=== PATIENT | female | born 1970 | race Caucasian/White ===

== ENCOUNTER 2017-07-24 07:04 | Emergency (ER) | payer SELFPAY ==
[~2017-07-24] VITALS: Ht 162.6 cm; Wt 86.2 kg
[~2017-07-24 07:04] MED LIST: AZIT250T12 PO; BUDE10.2 IH; BUSP10TA95 PO; D-ME118S33 PO; DICL75TA2 PO; LURA60TA2 PO; OXYB5TAB9 PO; OXYC-197 PO; PRAZ1CAP PO; PRD20T PO; SERT100T PO; TOPI100C6 PO
[2017-07-24 07:34] LABS: BASOPHILS # (AUTO) 0.1 10^3/uL (0.0-0.1); BASOPHILS % (AUTO) 1 % (0-10); EOSINOPHILS # (AUTO) 0.5 10^3/uL (0.0-0.3); EOSINOPHILS % (AUTO) 6 % (0-10); HEMATOCRIT 43 % (35-52); HEMOGLOBIN 15.3 G/DL (11.5-16.0); LYMPHOCYTES % (AUTO) 36 % (12-44); MEAN CORPUSCULAR HEMOGLOBIN 30 PG (25-34); MEAN CORPUSCULAR HGB CONC 36 G/DL (32-36); MEAN CORPUSCULAR VOLUME 83 FL (80-99); MEAN PLATELET VOLUME 9.9 FL (7.4-10.4); MONOCYTES # (AUTO) 0.5 X 10^3 (0.0-1.0); MONOCYTES % (AUTO) 6 % (0-12); NEUTROPHILS # (AUTO) 4.4 X 10^3 (1.8-7.8); NEUTROPHILS % (AUTO) 52 % (42-75); PLATELET COUNT 271 10^3/uL (130-400); RED BLOOD COUNT 5.12 10^6/uL (4.35-5.85); RED CELL DISTRIBUTION WIDTH 13.2 % (10.0-14.5); WHITE BLOOD COUNT 8.5 10^3/uL (4.3-11.0)
[2017-07-24] MEDS: diphenhydrAMINE 50 MG/ML INJ (BENADRYL) IVP ONE (07:43)
[2017-07-24] MEDS: methylPREDNISolone 125 MG (Solu-MEDROL) VIAL IVP ONE (07:43)
[2017-07-24] MEDS: fentaNYL INJECTION 100 MCG/2 ML AMP IVP ONE (07:43)
[2017-07-24 07:48] LABS: ALANINE AMINOTRANSFERASE 13 U/L (0-55); ALBUMIN 4.3 GM/DL (3.2-4.5); ALKALINE PHOSPHATASE 64 U/L (40-136); BILIRUBIN,TOTAL 0.8 MG/DL (0.1-1.0); BUN/CREATININE RATIO 19; CALCIUM 9.7 MG/DL (8.5-10.1); CARBON DIOXIDE 18 MMOL/L (21-32); CHLORIDE 111 MMOL/L (98-107); GFR ESTIMATED > 60; GLUCOSE 116 MG/DL (70-105); POTASSIUM 3.9 MMOL/L (3.6-5.0); SODIUM 140 MMOL/L (135-145); TOTAL PROTEIN 7.4 GM/DL (6.4-8.2)
[2017-07-24] MEDS ORDERED: RT-ALBUINH IH (07:55)
[2017-07-24] MEDS: NS 250 ML (IVPB) BAG IV ONE (08:26)
[2017-07-24] MEDS: IOHEXOL 350 MG/ML 100 ML (OMNIPAQUE 350) VIAL IV ONE (08:26)
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
--- NOTE | 2017-07-24 08:33 | Diagnostic Imaging Report ---
INDICATION: Fall with right shoulder pain. AP, oblique, and transscapular views of the right shoulder are obtained. FINDINGS: No fracture or acute bony abnormality is seen. There is degenerative change of AC joint. There is minimal degenerative change of the glenohumeral joint. IMPRESSION: Degenerative findings as above with no acute fracture or dislocation. Dictated by: Dictated on workstation # [id number]
--- NOTE | 2017-07-24 08:54 | Diagnostic Imaging Report ---
PROCEDURE: CT chest, abdomen, and pelvis with contrast. TECHNIQUE: Multiple contiguous axial images were obtained through the chest, abdomen, and pelvis after the administration of intravenous contrast. INDICATION: Fall. CT chest: There appear to be surgical clips in the anterior mediastinum. No mediastinal hematoma or great vessel injury is detected. No pericardial or pleural fluid is detected. No parenchymal contusion or pneumothorax is detected. IMPRESSION: Unremarkable CT of the chest CT abdomen and pelvis: Postsurgical changes to the stomach are identified. Liver demonstrates mild generalized low density suggestive of hepatic steatosis. No focal laceration is seen. The gallbladder is unremarkable. No splenic laceration is identified. The pancreas is unremarkable. No adrenal hematoma is seen. No renal injury is identified. The aorta is unremarkable. There is no ascites or hemoperitoneum. The bladder and uterus are unremarkable. IMPRESSION: No evidence of abdominal or pelvic visceral injury. Dictated by: Dictated on workstation # [id number]
--- NOTE | 2017-07-24 09:26 | Diagnostic Imaging Report ---
INDICATION: Fall. Back pain. COMPARISON: None. TECHNIQUE: Routine noncontrast CT of the thoracic and lumbar spine was performed. Multiplanar reformats were also performed and reviewed. FINDINGS: CT thoracic spine: Static alignment is maintained. There is no significant anterolisthesis or retrolisthesis. There is no evidence of jumped facets. Vertebral body heights are preserved as well. There is no evidence acute fracture. No bony fragments are seen within the spinal canal. There are multilevel degenerative changes consisting of intervertebral disc height loss with anterior and posterior disc osteophyte complex formations as well as multilevel facet arthropathy. There is, however, no significant bony spinal canal stenosis. Surrounding soft tissue structures are unremarkable. Included portions of the lung gilmore are clear. CT LUMBAR SPINE: Static alignment of the lumbar spine is maintained as well. There is no significant anterolisthesis or retrolisthesis. There is no evidence of jumped facets. Vertebral body heights are preserved. There is no evidence acute fracture. No bony fragments are seen within the spinal canal. There are mild multilevel degenerative changes within the lumbar spine as well. There is no evidence of significant bony spinal canal stenosis. Surrounding soft tissue structures show small right adrenal adenoma that measures approximately 1.1 cm in diameter. Please note, CT of the chest, abdomen and pelvis was also performed same day and dictated separately. IMPRESSION: 1. No CT evidence of acute fracture or dislocation of the thoracic or lumbar spine. 2. Mild multilevel degenerative changes. Dictated by: Dictated on workstation # [id number]
[2017-07-24] MEDS: KETOROLAC 30 MG/ML VIAL IVP ONE (09:40)
[2017-07-24 10:08] VITALS: BP 127/93
== END 2017-07-24 10:11 | disposition home or self-care (01) ==
LOC: EDUNIT# 07:04 → ER 07:06
DX: S49.91XA Unspecified injury of right shoulder and upper arm, initial encounter (principal); M54.6 Pain in thoracic spine; M54.5 Low back pain; R06.00 Dyspnea, unspecified; J44.9 Chronic obstructive pulmonary disease, unspecified; F41.9 Anxiety disorder, unspecified; F31.9 Bipolar disorder, unspecified; F43.10 Post-traumatic stress disorder, unspecified; Z87.19 Personal history of other diseases of the digestive system; Z87.42 Personal history of other diseases of the female genital tract; Z96.22 Myringotomy tube(s) status; W10.9XXA Fall (on) (from) unspecified stairs and steps, initial encounter
CPT/HCPCS: 36415; 71260; 72128; 72131; 73030; 74177; 80053; 85025; 96374; 96375

== ENCOUNTER 2018-02-15 11:12 | Emergency (ER) | payer SELFPAY ==
[~2018-02-15] VITALS: Ht 165.1 cm; Wt 98.9 kg
[~2018-02-15 11:12] MED LIST changes: -OXYC-197 PO; +OXYC1TAB87 PO; +RT-ALBUINH IH
[2018-02-15] MEDS ORDERED: HYOSCYAMINE 0.125 MG (LEVSIN) TAB ONE (11:36)
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
[2018-02-15 11:41] LABS: HEMOGLOBIN 15.7 G/DL (11.5-16.0); WHITE BLOOD COUNT 7.4 10^3/uL (4.3-11.0)
[2018-02-15 11:42] LABS: BASOPHILS # (AUTO) 0.1 10^3/uL (0.0-0.1); BASOPHILS % (AUTO) 1 % (0-10); EOSINOPHILS # (AUTO) 0.4 10^3/uL (0.0-0.3); EOSINOPHILS % (AUTO) 5 % (0-10); HEMATOCRIT 45 % (35-52); LYMPHOCYTES # (AUTO) 2.7 X 10^3 (1.0-4.0); LYMPHOCYTES % (AUTO) 36 % (12-44); MEAN CORPUSCULAR HEMOGLOBIN 30 PG (25-34); MEAN CORPUSCULAR HGB CONC 35 G/DL (32-36); MEAN CORPUSCULAR VOLUME 86 FL (80-99); MEAN PLATELET VOLUME 9.9 FL (7.4-10.4); MONOCYTES # (AUTO) 0.6 X 10^3 (0.0-1.0); MONOCYTES % (AUTO) 8 % (0-12); NEUTROPHILS # (AUTO) 3.7 X 10^3 (1.8-7.8); NEUTROPHILS % (AUTO) 50 % (42-75); PLATELET COUNT 240 10^3/uL (130-400); RED CELL DISTRIBUTION WIDTH 12.3 % (10.0-14.5)
[2018-02-15] MEDS ORDERED: HYOSCYAMINE 0.125 MG (LEVSIN) TAB PO ONE (11:45)
[2018-02-15] MEDS ORDERED: NS IV 1000 ML 1,000 ML IV SCH (11:45)
[2018-02-15 12:02] LABS: ALANINE AMINOTRANSFERASE 15 U/L (0-55); ALBUMIN 4.2 GM/DL (3.2-4.5); ALKALINE PHOSPHATASE 70 U/L (40-136); AMYLASE 52 U/L (25-125); BILIRUBIN,TOTAL 1.2 MG/DL (0.1-1.0); BUN/CREATININE RATIO 14; CALCIUM 9.7 MG/DL (8.5-10.1); CARBON DIOXIDE 23 MMOL/L (21-32); CHLORIDE 107 MMOL/L (98-107); GFR ESTIMATED > 60; GLUCOSE 83 MG/DL (70-105); LIPASE 29 U/L (8-78); POTASSIUM 3.9 MMOL/L (3.6-5.0); SODIUM 140 MMOL/L (135-145); TOTAL PROTEIN 7.3 GM/DL (6.4-8.2)
[2018-02-15 12:53] LABS: BILIRUBIN,URINE NEGATIVE (NEGATIVE); GLUCOSE, URINE (UA) NEGATIVE (NEGATIVE); KETONES,URINE NEGATIVE (NEGATIVE); LEUKOCYTE ESTERASE ,URINE NEGATIVE (NEGATIVE); NITRITE,URINE NEGATIVE (NEGATIVE); PH,URINE 7 (5-9); PROTEIN,URINE NEGATIVE (NEGATIVE); UROBILINOGEN,URINE NORMAL (NORMAL)
[2018-02-15 12:57] LABS: AMORPHOUS SEDIMENT,UR RARE AMOR PHOSPHATE /LPF; BACTERIA,URINE TRACE /HPF; CLARITY,URINE CLEAR; COLOR,URINE YELLOW; WBC,URINE 0-2 /HPF
[2018-02-15] MEDS ORDERED: ONDN4T PO (13:13)
[2018-02-15 13:45] VITALS: BP 129/88
== END 2018-02-15 13:45 | disposition home or self-care (01) ==
LOC: ER 11:12 → EDUNIT# 11:12 → ER 13:45
DX: R11.2 Nausea with vomiting, unspecified (principal); R19.7 Diarrhea, unspecified; J44.9 Chronic obstructive pulmonary disease, unspecified; G47.30 Sleep apnea, unspecified; F41.9 Anxiety disorder, unspecified; F31.9 Bipolar disorder, unspecified; F43.10 Post-traumatic stress disorder, unspecified; Z98.84 Bariatric surgery status; Z87.19 Personal history of other diseases of the digestive system; Z87.448 Personal history of other diseases of urinary system; Z91.040 Latex allergy status; Z91.041 Radiographic dye allergy status; Z79.51 Long term (current) use of inhaled steroids; Z98.890 Other specified postprocedural states
CPT/HCPCS: 36415; 80053; 81000; 82150; 83690; 84703; 85025

== ENCOUNTER 2018-05-17 05:35 | Outpatient (CLI) | payer OTHER ==
[~2018-05-17] VITALS: Ht 165.1 cm; Wt 102.5 kg
[~2018-05-17 05:35] MED LIST changes: +ONDN4T PO
[2018-05-17] MEDS ORDERED: MONT10TA21 PO (10:23)
[2018-05-17] MEDS ORDERED: AZIT250T PO (18:00)
[2018-05-17] MEDS ORDERED: METH4TAB PO (18:00)
[2018-05-17] MEDS ORDERED: D-ME473S38 PO (18:00)
[2018-05-17] MEDS ORDERED: ALB0.5V INH (18:00)
== END 2018-05-17 10:27 | disposition home or self-care (01) ==
LOC: PREOP 05:35
PROVIDERS: ATTEND Surgery
DX: Z01.818 Encounter for other preprocedural examination (principal)

== ENCOUNTER 2018-05-17 16:15 | Emergency (ER) | payer OTHER ==
[~2018-05-17] VITALS: Ht 162.6 cm; Wt 102.5 kg
[~2018-05-17 16:15] MED LIST changes: +MONT10TA21 PO
--- OUTSIDE RECORDS SUMMARY | 2018-05-17 16:20 | XMS REPORT | CCD ---
Author Author JOSE MANUEL VALENCIA Organization Unknown Address [address] [facility] [address] [place], [place] [id number] Care Team Providers Care Safety Glass Installer Name Role Phone PATTI CLAYLOWELL Attphys JS GOMEZ, MAURO Busch S., TIOT Bates NASST A., ДМИТРИЙ NASST W., KAYLENE NASST F., MARANDA NASST C., MICKEY Martino NASST E., DAVIE Galvin NASST M., AKUA NASST A., MELISSA NASST C., DANNY NASST Vital Signs Vital Sign Value Unit Date/Time Recent/Initial? Weight Measured 336.5 lbs 01/29/2014 10:03 Initial VS Height 65 in 01/29/2014 10:03 Initial VS BMI (Body Mass Index) 56 kg/m^2 01/29/2014 10:03 Initial VS BSA (Body Surface Area) 2.65 m^2 01/29/2014 10:03 Initial VS BP Systolic 125 mmHg 01/29/2014 10:03 Initial VS BP Diastolic 81 mmHg 01/29/2014 10:03 Initial VS Respiratory Rate 22 bpm 01/29/2014 10:03 Initial VS Heart Rate 103 bpm 01/29/2014 10:03 Initial VS O2 % BldC Oximetry 100 % 01/29/2014 10:03 Initial VS Body Temperature 99 degrees 01/29/2014 10:03 Initial VS BP Systolic 135 mmHg 01/31/2014 15:09 Most Recent VS BP Diastolic 80 mmHg 01/31/2014 15:09 Most Recent VS Respiratory Rate 20 bpm 01/31/2014 15:09 Most Recent VS Heart Rate 77 bpm 01/31/2014 15:09 Most Recent VS O2 % BldC Oximetry 100 % 01/31/2014 15:09 Most Recent VS Body Temperature 96.8 degrees 01/31/2014 15:09 Most Recent VS Allergies Allergy Code Allergy Type Reaction Status LATEX 0 Allergy to substance Active IODINE 5933 Drug allergy Active NATURAL RUBBER {Clinical monitoring unavailable} 0 Drug allergy Active Procedures Procedure Code Procedure Type Date ABDOMINAL WALL INCISION 540 ICD-9 CM, Volume 3 01/29/2014 CBC W/ AUTO DIFF (RFLX MAN DIFF IF IND) 7429006 SNOMED CT 01/29/2014 COMPREHENSIVE METABOLIC PANEL 927452139 SNOMED CT 2013 CULTURE BLOOD 60619562 SNOMED CT 01/29/2014 ^CBC W/AUTO DIFF 5084887 SNOMED CT 01/29/2014 CULTURE MISC 251384463 SNOMED CT 01/29/2014 GRAM STAIN 47381233 SNOMED CT 01/29/2014 CBC W/ AUTO DIFF (RFLX MAN DIFF IF IND) 2202607 SNOMED CT 01/30/2014 COMPREHENSIVE METABOLIC PANEL 234923774 SNOMED CT [address] 01/30/[address] 01/30/2014 HEMOGLOBIN A1C 47315052 SNOMED CT 01/30/2014 ^CBC W/AUTO DIFF 5311723 SNOMED CT 01/30/2014 [address]LECTION 16[address]66 SNOMED [address] 01/29/2014 ^SENSITIVITY 135939928 SNOMED CT 01/29/2014 ^CULT ANAEROBIC 168873284 SNOMED CT 01/29/2014 US ABD LTD (SINGLE ORGAN) 432523381 SNOMED CT 01/29/2014 History of Immunizations Unknown or Not Available. Problems Problem Code Start Date Resolved Date Status Abscess of abdominal wall 87790651 01/29/2014 Active Results COMPREHENSIVE METABOLIC PANEL - Collect Date/Time: 01/30/2014 06:10 Test Name Code Test Result Test Units Test Ref Range GLUCOSE 2345-7 104 MG/DL L=70 H=100 SODIUM 2951-2 139 MEQ/L L=135 H=148 POTASSIUM 2823-3 3.8 MEQ/L L=3.5 H=5.3 CHLORIDE 2075-0 104 MEQ/L L=96 H=110 CO2 2028-9 21 MEQ/L L=22 H=29 BUN 3094-0 7 MG/DL L=8 H=22 CREATININE 2160-0 0.7 MG/DL L=0.6 H=1.6 SGOT/AST 1920-8 63 IU/L L=10 H=40 SGPT/ALT 1742-6 40 IU/L L=8 H=54 ALK PHOS 6768-6 69 IU/L L=35 H=115 TOTAL PROTEIN 2885-2 8.0 G/DL L=5.5 H=8.5 ALBUMIN 1751-7 3.6 G/DL L=3.1 H=5.4 TOTAL BILI 1975-2 0.2 MG/DL L=0.0 H=1.5 CALCIUM 07731-3 9.7 MG/DL L=8.2 H=10.6 AGE 43 yrs GFR NonAA 92 GFR AA 112 eGFR 60 mL/min/1.7 eGFR AA* 60 mL/min/1.7 COMPREHENSIVE METABOLIC PANEL - Collect Date/Time: 01/29/2014 07:40 Test Name Code Test Result Test Units Test Ref Range GLUCOSE 2345-7 123 MG/DL L=70 H=100 SODIUM 2951-2 138 MEQ/L L=135 H=148 POTASSIUM 2823-3 3.6 MEQ/L L=3.5 H=5.3 CHLORIDE 2075-0 104 MEQ/L L=96 H=110 CO2 2028-9 18 MEQ/L L=22 H=29 BUN 3094-0 5 MG/DL L=8 H=22 CREATININE 2160-0 0.8 MG/DL L=0.6 H=1.6 SGOT/AST 1920-8 62 IU/L L=10 H=40 SGPT/ALT 1742-6 37 IU/L L=8 H=54 ALK PHOS 6768-6 68 IU/L L=35 H=115 TOTAL PROTEIN 2885-2 8.0 G/DL L=5.5 H=8.5 ALBUMIN 1751-7 3.5 G/DL L=3.1 H=5.4 TOTAL BILI 1975-2 0.7 MG/DL L=0.0 H=1.5 CALCIUM 13338-8 10.1 MG/DL L=8.2 H=10.6 AGE 43 yrs GFR NonAA 79 GFR AA 96 eGFR 60 mL/min/1.7 eGFR AA* 60 mL/min/1.7 CBC W/ AUTO DIFF (RFLX MAN DIFF IF IND) - Collect Date/Time: 01/30/2014 06:10 Test Name Code Test Result Test Units Test Ref Range WBC 48190-0 9.2 TH/CMM L=4.5 H=10.8 RBC 789-8 4.52 ML/CMM L=4.20 H=5.40 HGB 718-7 11.2 G/DL L=12.0 H=16.0 HCT 4544-3 36.2 % L=37.0 H=47.0 MCV 80 FL L=81 H=99 MCH 24.8 PG L=27.0 H=33.0 MCHC 30.9 G/DL L=31.0 H=36.0 RDW SD 44 FL L=36 H=50 RDW CV 15.2 % L=0.0 H=14.8 MPV 9.8 FL L=9.3 H=12.5 PLT 777-3 376 TH/CMM L=130 H=440 NRBC# 0.00 TH/CMM L=0.00 H=0.00 NRBC% 0.0 /100WBC L=0.0 H=2.0 %NEUT 51.1 % %LYMP 36.1 % %MONO 6.1 % %EOS 6.3 % %BASO 0.4 % #NEUT 4.72 TH/CMM L=2.10 H=8.20 #LYMP 3.34 TH/CMM L=0.90 H=5.20 #MONO 0.56 TH/CMM L=0.16 H=1.00 #EOS 0.58 TH/CMM L=0.00 H=0.80 #BASO 0.04 TH/CMM L=0.00 H=0.20 MANUAL DIFF NOT IND N/A CBC W/ AUTO DIFF (RFLX MAN DIFF IF IND) - Collect Date/Time: 01/29/2014 07:40 Test Name Code Test Result Test Units Test Ref Range WBC 66594-8 12.4 TH/CMM L=4.5 H=10.8 RBC 789-8 4.38 ML/CMM L=4.20 H=5.40 HGB 718-7 10.9 G/DL L=12.0 H=16.0 HCT 4544-3 34.5 % L=37.0 H=47.0 MCV 79 FL L=81 H=99 MCH 24.9 PG L=27.0 H=33.0 MCHC 31.6 G/DL L=31.0 H=36.0 RDW SD 44 FL L=36 H=50 RDW CV 15.3 % L=0.0 H=14.8 MPV 9.1 FL L=9.3 H=12.5 PLT 777-3 338 TH/CMM L=130 H=440 NRBC# 0.00 TH/CMM L=0.00 H=0.00 NRBC% 0.0 /100WBC L=0.0 H=2.0 %NEUT 71.1 % %LYMP 19.6 % %MONO 5.9 % %EOS 3.1 % %BASO 0.3 % #NEUT 8.84 TH/CMM L=2.10 H=8.20 #LYMP 2.44 TH/CMM L=0.90 H=5.20 #MONO 0.74 TH/CMM L=0.16 H=1.00 #EOS 0.38 TH/CMM L=0.00 H=0.80 #BASO 0.04 TH/CMM L=0.00 H=0.20 MANUAL DIFF NOT IND N/A HEMOGLOBIN A1C - Collect Date/Time: 01/30/2014 06:10 Test Name Code Test Result Test Units Test Ref Range HGB A1C 80919-0 5.8 % L=4.0 H=6.4 Est Avg Glucose 119.8 mg/dL MAGNESIUM - Collect Date/Time: 01/30/2014 06:10 Test Name Code Test Result Test Units Test Ref Range MAGNESIUM 49837-6 2.1 MG/DL L=1.7 H=2.8 PHOSPHORUS - Collect Date/Time: 01/30/2014 06:10 Test Name Code Test Result Test Units Test Ref Range PHOSPHORUS 2777-1 3.9 MG/DL L=2.5 H=4.5 Active Medications No Active Medications Medications Administered During Visit Medication Dose Units Frequency Route Date/ Time of Last Dose METOCLOPRAMIDE [REGLAN] INJ: 10MG/2ML 10 MG X1 IVP 01/29/2014 10:58 FAMOTIDINE(PEPCID)IV BAMG X1 IV 01/29/2014 10:59 NS 1000 ML IV [PREDEFINED] (7983) CONT IV IV 01/29/2014 16:34 NORCO [HYDROCODONE/APAP] 10/325MG TAB 2 EA PRN PO 01/31/2014 13:49 MORPHINE INJ: 2MG/ML 1 ML SYRINGE 2 MG PRN IVP 01/29/2014 14:12 SERTRALINE [ZOLOFT] TABLET: 50 MG 50 MG DAILY PO 01/31/2014 08:13 ERTAPENEM 1 GM IV Q 24 HRS [PREDEFINED] Q24H IV 01/31/2014 13:49 EPOETIN YANELI 40,000 UNIT VIAL 89015 UNITS DAILY SUB Q 01/31/2014 08:13 Encounters Encounter Diagnosis Diagnosis Code Start Date CELLULITIS OF TRUNK 6822 01/29/2014 Social History Smoking Status Code Start Date End Date Current every day smoker 651293221 Patient Decision Aids Unknown or Not Available. Discharge Instructions You were admitted to [facility] on 01/29/2014 with a principal diagnosis of CELLULITIS OF TRUNK. You had the following procedures done: ABDOMINAL WALL INCISION You were discharged from [facility] on 01/31/2014. Should you have any questions prior to discharge, please contact a member of your healthcare team. If you have left the hospital and have any questions, please contact your primary care physician. HOME DIET: Regular. CONDITION AT DISMISSAL Stable. HOME MEDICATION INSTRUCTIONS: Take only the medications listed above.. Verbalizes understanding of instructions. HOME MEDS RETURNED TO PATIENT: N/A. continue zoloft and skelaxin as currently taking at home. Pain medication: [place]- 1-2 tablets every 4 hrs as needed. (prescription) Antibiotic: Augmentin - 1 tablet twice a day (prescription) ACTIVITY INSTRUCTIONS(list limitations): May Shower. SPECIAL INSTRUCTIONS: Pack wound with saline soaked kerlix , . cover with 4x4's, abd and foam tape daily SCRIPTS WRITTEN BY DOCTOR GIVEN TO PATIENT? Yes, for what? augmentin, norco, Education performed on new medications. Verbalizes understanding of instructions. FOLLOW UP CARE - SEE YOUR PHYSICIAN: You have an appointment on ThursdayFebruary 03 at 9 am. PRIMARY CARE PHYSICIAN OR PRACTITIONER: Lowell Vargas DO, . CONTACT PHYSICIAN IF YOU EXPERIENCE ANY: Nausea/Vomiting , pain, numbness in your hands/feet, Shortness of Breath. fever. PERSONAL ITEMS RETURNED: Yes. Bring these instructions to next visit? Yes. INSTRUCTIONS GIVEN AND DISCHARGE TO: Patient. VOICES UNDERSTANDING OF INSTRUCTIONS: Yes. INSTRUCTIONS GIVEN BY (TYPE IN NAME AND DATE) Gennaro Valerio RN 01/31/14 SMOKING CESSATION: A pamphlet on smoking was given to you, at admission.. RELEVANT CONTACT INFORMATION: [facility] will see you at your home tomorrow. CHIEF COMPLAINT: RIGHT UPPER QUADRANT ABCESS Chief Complaint and Reason For Visit Chief Complaint Date of Onset ABDOMINAL WALL ABCESS Function Status Description Code Date Type Status No Impairments 66186151 09/09/2013 Functional Active Plan of Care Care Plan Entries Problem: Closed fracture carpal bone [SNOMED: 0786555] Goal: Pain management [SNOMED: 836729262] Instructions: pain management assisted with use of prn pain medications. Possible open reduction internal fixation for left distal radial fracture. Referral/Transition of Care Unknown or Not Available.
--- OUTSIDE RECORDS SUMMARY | 2018-05-17 16:20 | XMS REPORT | CCD ---
Author Author JOSE MANUEL VALENCIA Organization Unknown Address [address] [address] [place], [place] [id number] Care Team Providers Care Dump Truck Driver Name Role Phone PATTI CLAYLOWELL Attphys JS GOMEZ, MAURO Busch S., TITO Bates NASST A., ДМИТРИЙ NASST W., KAYLENE [...] AUTO DIFF (RFLX MAN DIFF IF IND) 4895975 SNOMED CT 01/29/2014 COMPREHENSIVE METABOLIC PANEL 209689878 SNOMED CT 2013 CULTURE BLOOD 65493856 SNOMED CT 01/29/2014 ^CBC W/AUTO DIFF 1203415 SNOMED CT 01/29/2014 CULTURE MISC 149169493 SNOMED CT 01/29/2014 GRAM STAIN 77148514 SNOMED CT 01/29/2014 CBC W/ AUTO DIFF (RFLX MAN DIFF IF IND) 6420791 SNOMED CT 01/30/2014 COMPREHENSIVE METABOLIC PANEL 496674051 SNOMED CT [address] 01/30/[address] 01/30/2014 HEMOGLOBIN A1C 33313566 SNOMED CT 01/30/2014 ^CBC W/AUTO DIFF 9547681 SNOMED CT 01/30/2014 BLOOD COLLECTION 83866106 SNOMED CT 01/29/2014 ^SENSITIVITY 621662101 SNOMED CT 01/29/2014 ^CULT ANAEROBIC 486207562 SNOMED CT 01/29/2014 US ABD LTD (SINGLE ORGAN) 834587720 SNOMED CT 01/29/2014 History of Immunizations Unknown or Not Available. Problems Problem Code Start Date Resolved Date Status Abscess of abdominal wall 43704691 01/29/2014 Active Results COMPREHENSIVE METABOLIC PANEL - [...] BILI 1975-2 0.2 MG/DL L=0.0 H=1.5 CALCIUM 08899-5 9.7 MG/DL L=8.2 H=10.6 AGE 43 yrs [...] BILI 1975-2 0.7 MG/DL L=0.0 H=1.5 CALCIUM 57677-8 10.1 MG/DL L=8.2 H=10.6 AGE 43 yrs GFR NonAA 79 GFR AA 96 eGFR 60 mL/min/1.7 eGFR AA* 60 mL/min/1.7 CBC W/ AUTO DIFF (RFLX MAN DIFF IF IND) - Collect Date/Time: 01/30/2014 06:10 Test Name Code Test Result Test Units Test Ref Range WBC 17753-7 9.2 TH/CMM L=4.5 H=10.8 RBC 789-8 4.52 [...] Result Test Units Test Ref Range WBC 26976-6 12.4 TH/CMM L=4.5 H=10.8 RBC 789-8 4.38 [...] Test Units Test Ref Range HGB A1C 49076-4 5.8 % L=4.0 H=6.4 Est Avg Glucose 119.8 mg/dL MAGNESIUM - Collect Date/Time: 01/30/2014 06:10 Test Name Code Test Result Test Units Test Ref Range MAGNESIUM 49570-4 2.1 MG/DL L=1.7 H=2.8 PHOSPHORUS - Collect [...] 01/31/2014 13:49 EPOETIN YANELI 40,000 UNIT VIAL 32922 UNITS DAILY SUB Q 01/31/2014 08:13 Encounters Encounter Diagnosis Diagnosis Code Start Date CELLULITIS OF TRUNK 6822 01/29/2014 Social History Smoking Status Code Start Date End Date Current every day smoker [id number] Patient Decision Aids Unknown or Not Available. Discharge Instructions You were admitted to [facility] on 01/29/2014 with a principal diagnosis of CELLULITIS OF TRUNK. You had the following procedures done: ABDOMINAL WALL INCISION You were discharged from [facility] on 01/31/2014. Should you have any questions [...] as currently taking at home. Pain medication: [place]- 1-2 tablets every 4 hrs as needed. [...] to you, at admission.. RELEVANT CONTACT INFORMATION: [facility] will see you at your home tomorrow. CHIEF COMPLAINT: RIGHT UPPER QUADRANT ABCESS Chief Complaint and Reason For Visit Chief Complaint Date of Onset ABDOMINAL WALL ABCESS Function Status Description Code Date Type Status No Impairments [id number] 09/09/2013 Functional Active Plan of Care Care Plan Entries Problem: Closed fracture carpal bone [SNOMED: 9061014] Goal: Pain management [SNOMED: 193988940] Instructions: pain management assisted with use of prn pain medications. Possible open reduction internal fixation for left distal radial fracture. Referral/Transition of Care Unknown or Not Available.
--- OUTSIDE RECORDS SUMMARY | 2018-05-17 16:21 | XMS REPORT ---
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 Role Phone PCP Unavailable Allergies and Adverse Reactions Name Reaction Notes iodine Latex natural rubber Plan of Treatment Planned Activity Comments Planned Date Planned Time Plan/Goal COMPLETE CBC W/AUTO DIFF WBC 01/20/2014 12:00 AM COMPREHEN METABOLIC PANEL 01/20/2014 12:00 AM MAMMOGRAM SCREENING 06/09/2014 12:00 AM COMPLETE CBC W/AUTO DIFF WBC 06/02/2014 12:00 AM COMPREHEN METABOLIC PANEL 06/02/2014 12:00 AM LIPID PANEL 06/02/2014 12:00 AM GLYCOSYLATED HEMOGLOBIN TEST 06/02/2014 12:00 AM Medications Active Name Start Date Estimated Completion Date SIG Comments Zoloft oral tablet 100 mg 02/17/2014 take 1 tablet by oral route daily Symbicort inhalation HFA aerosol inhaler 160-4.5 mcg/actuation inhale 2 puffs by inhalation route 2 times per day in the morning and evening Latuda oral tablet 60 mg take 1 tablet (60 mg) by oral route once daily with food (at least 350 calories) oxybutynin chloride oral tablet 5 mg 04/04/2014 take 1 tablet (5 mg) by oral route 2 times per day Minipress oral capsule 1 mg 04/04/2014 take 1 capsule (1 mg) by oral route 1 times per day meloxicam oral tablet 15 mg 04/04/2014 take 1 tablet (15 mg) by oral route once daily buspirone oral tablet 10 mg take 1 tablet (10 mg) by oral route 3 times per day Trokendi XR oral capsule,extended release 24hr 50 mg take 1 capsule (50 mg) by oral route once daily Name Start Date Expiration Date SIG Comments Skelaxin oral tablet 800 mg 10/21/2013 11/20/2013 take 1 tablet (800 mg) by oral route 3 times per day as needed for 30 days Augmentin oral tablet 875-125 mg 01/20/2014 01/30/2014 take 1 tablet by oral route every 12 hours for 10 days Discontinued Name Start Date Discontinued Date SIG Comments ibuprofen oral tablet 800 mg 12/20/2013 take 1 tablet by oral route every 6 hours as needed Percocet oral tablet 5-325 mg 10/21/2013 take 1 tablet by oral route every 4-6 hours as needed hydrocodone-acetaminophen oral tablet 5-325 mg 07/19/2013 1-2 tabs po q4-6 hrs PRN pain hydrocodone-acetaminophen oral tablet 10-325 mg 01/20/2014 take 1or 2 tablet by oral route every 4 hours as needed for pain prednisone oral tablet 50 mg 01/20/2014 take 1 tablet 13hrs before test, take 1 tablet 7hrs before test and 1 talbet 1 hours before test Symbicort inhalation HFA aerosol inhaler 80-4.5 mcg/actuation 01/30/2014 inhale 2 puffs by inhalation route 2 times per day in the morning and evening Augmentin oral tablet 875-125 mg 04/04/2014 take 1 tablet by oral route every 12 hours Skelaxin oral tablet 800 mg 04/04/2014 take 1 tablet (800 mg) by oral route 3 times per day as needed Depue oral tablet 10-325 mg 04/04/2014 take 1 tablet by oral route every 6 hours as needed for pain Problem List Description Status Onset Abdominal Tenderness Active 06/28/2013 Abdominal Wall Contusion Active 06/28/2013 Seroma Active 10/25/2013 Hematoma Active 08/30/2013 Contusion, abdominal wall Active 08/31/2013 Vital Signs Date Time BP-Sys(mm[Hg] BP-Zenobia(mm[Hg]) HR(bpm) RR(rpm) Temp WT HT HC BMI BSA BMI Percentile O2 Sat(%) 06/30/2014 8:05:00 AM 120 mmHg 80 mmHg 63 bpm 20 rpm 97.6 F 341.6 lbs 99 % 06/02/2014 10:34:00 AM 137 mmHg 79 mmHg 93 bpm 98.1 F 337 lbs 65 in 56.0792 kg/m 2.6477 m 06/02/2014 9:36:00 AM 122 mmHg 90 mmHg 67 bpm 20 rpm 97.8 F 337 lbs 65 in 56.08 kg/m2 2.65 m2 98 % 04/04/2014 9:58:00 AM 124 mmHg 84 mmHg 81 bpm 20 rpm 98.1 F 331 lbs 65 in 55.0807 kg/m 2.624 m 97 % 02/17/2014 9:28:00 AM 124 mmHg 78 mmHg 78 bpm 20 rpm 97.2 F 340.4 lbs 65 in 56.64 kg/m2 2.66 m2 99 % 02/10/2014 10:41:00 AM 129 mmHg 65 mmHg 75 bpm 20 rpm 97.6 F 336.312 lbs 65 in 55.9648 kg/m 2.645 m 01/20/2014 10:46:00 AM 120 mmHg 88 mmHg 100 bpm 22 rpm 99.9 F 345.4 lbs 65 in 57.48 kg/m2 2.68 m2 98 % 12/20/2013 1:50:00 PM 128 mmHg 90 mmHg 96 bpm 20 rpm 98.8 F 343.8 lbs 65 in 57.2107 kg/m 2.6743 m 99 % 12/20/2013 1:04:00 PM 148 mmHg 99 mmHg 92 bpm 22 rpm 98 F 345 lbs 65 in 57.41 kg/m2 2.68 m2 11/16/2013 1:50:00 PM 157 mmHg 99 mmHg 84 bpm 22 rpm 97.4 F 349 lbs 65 in 58.076 kg/m 2.6944 m 10/21/2013 1:02:00 PM 138 mmHg 82 mmHg 83 bpm 22 rpm 97 F 360.312 lbs 63 in 63.83 kg/m2 2.70 m2 08/30/2013 10:05:00 AM 123 mmHg 76 mmHg 90 bpm 20 rpm 97.2 F 358.312 lbs 62 in 65.5355 kg/m 2.6664 m 08/23/2013 9:25:00 AM 143 mmHg 82 mmHg 91 bpm 20 rpm 97.4 F 360 lbs 07/19/2013 10:52:00 AM 140 mmHg 95 mmHg 96 bpm 22 rpm 97 F 354 lbs 65 in 58.9081 kg/m 2.7137 m 06/28/2013 11:05:00 AM 145 mmHg 86 mmHg 75 bpm 20 rpm 97.6 F 353 lbs 65 in 58.74 kg/m2 2.71 m2 Social History Name Description Comments Tobacco Alcohol Use - Rare History of Procedures Date Ordered Description Order Status 12/20/2013 12:00 AM COMPLETE CBC W/AUTO DIFF WBC Returned 12/20/2013 12:00 AM COMPREHEN METABOLIC PANEL Returned 12/20/2013 12:00 AM LIPID PANEL Returned 12/20/2013 12:00 AM ASSAY THYROID STIM HORMONE Returned 12/20/2013 12:00 AM VITAMIN B-12 Returned 12/20/2013 12:00 AM URINALYSIS AUTO W/SCOPE Returned 12/20/2013 12:00 AM CHEST X-RAY 2VW FRONTAL&LATL Returned 12/20/2013 12:00 AM BREATHING CAPACITY TEST Returned 01/19/2014 12:00 AM COMPLETE CBC W/AUTO DIFF WBC Returned 01/19/2014 12:00 AM COMPREHEN METABOLIC PANEL Returned 01/10/2014 12:[address] THORAX W/DYE Returned 06/09/2014 12:00 AM US EXAM PELVIC COMPLETE Returned 06/02/2014 12:00 AM SPECIMEN HANDLING OFFICE-LAB Reviewed 06/02/2014 12:00 AM ASSAY THYROID STIM HORMONE Returned 06/02/2014 12:00 AM ASSAY OF GONADOTROPIN (FSH) Returned 06/02/2014 12:00 AM ASSAY OF PROLACTIN Returned 06/02/2014 12:00 AM CYTOPATH C/V THIN LAYER Returned Results Summary Data and Description Results 06/17/2013 6:15 AM WBC 9.8 RBC 4.02 HGB 10.40 g/dLHCT 32.0 %MCV 80.0 fLMCH 25.90 pgMCHC 32.50 g/dLRDW CV 16.0 %MPV 10.20 fLPLT 258 %NEUT 50.0 %%LYMP 36.50 %%MONO 9.80 %%EOS 2.70 %%BASO 1.0 %#NEUT 4.88 #LYMP 3.56 #MONO 0.96 #EOS 0.26 # BASO 0.10 10/21/2013 1:40 PM TSH 6.10 uIU/mL 11/03/2013 8:12 AM TEST UR NEGATIVE 12/20/2013 2:50 PM WBC 10.9 RBC 4.65 HGB 11.40 g/dLHCT 36.30 %MCV 78.0 fLMCH 24.50 pgMCHC 31.40 g/dLRDW CV 15.40 %MPV 9.80 fLPLT 328 %NEUT 57.40 %%LYMP 33.80 %%MONO 5.30 %%EOS 3.0 %%BASO 0.50 %#NEUT 6.27 #LYMP 3.69 #MONO 0.58 #EOS 0.33 #BASO 0.06 COLOR YELLOW APPEARANCE CLEAR SPEC GRAV 1.025 pH 6.0 PROTEIN NEGATIVE GLUCOSE NEGATIVE KETONE NEGATIVE BILIRUBIN NEGATIVE BLOOD SMALL NITRITE NEGATIVE LEUK SCREEN NEGATIVE CASTS/LPF NEGATIVE CRYSTALS NEGATIVE MUCOUS THRDS FEW BACTERIA 1+ EPITH CELLS 1+ SQUAMOUS TRICHOMONAS NEGATIVE YEAST NEGATIVE GLUCOSE 85.0 mg/dLSODIUM 138.0 mmol/LPOTASSIUM 4.10 mmol/LCHLORIDE 104.0 mmol/LCO2 23.0 mmol/LBUN 8.0 mg/dLCREATININE 0.70 mg/dLSGOT/AST 90.0 IU/ LSGPT/ALT 56.0 IU/LALK PHOS 72.0 IU/LTOTAL PROTEIN 8.10 g/dLALBUMIN 4.0 g/ dLTOTAL BILI 0.80 mg/dLCALCIUM 10.20 mg/dLeGFR 60 TRIGLYCERIDES 143.0 mg/ dLCHOLESTEROL 151.0 mg/dLVITAMIN B12 506.0 pg/mLTSH 1.570 uIU/mLTRIGLYCERIDES 143.0 mg/dLCHOLESTEROL 151.0 mg/dLHDL 30.0 mg/dLLDL (CALC) 92.0 mg/dL 01/20/2014 11:45 AM GLUCOSE 95.0 mg/dLSODIUM 135.0 mmol/LPOTASSIUM 4.30 mmol/ LCHLORIDE 102.0 mmol/LCO2 21.0 mmol/LBUN 8.0 mg/dLCREATININE 0.70 mg/dLSGOT/AST 38.0 IU/LSGPT/ALT 39.0 IU/LALK PHOS 93.0 IU/LTOTAL PROTEIN 7.60 g/dLALBUMIN 3.80 g/dLTOTAL BILI 1.10 mg/dLCALCIUM 9.50 mg/dLeGFR 60 WBC 15.3 RBC 4.84 HGB 11.90 g/dLHCT 37.90 %MCV 78.0 fLMCH 24.60 pgMCHC 31.40 g/dLRDW CV 15.70 %MPV 10.30 fLPLT 324 %NEUT 62.20 %%LYMP 26.60 %%MONO 9.60 %%EOS 1.20 %%BASO 0.40 %# NEUT 9.49 #LYMP 4.06 #MONO 1.47 #EOS 0.19 #BASO 0.06 EOS 3.0 % 01/30/2014 6:10 AM WBC 9.2 RBC 4.52 HGB 11.20 g/dLHCT 36.20 %MCV 80.0 fLMCH 24.80 pgMCHC 30.90 g/dLRDW CV 15.20 %MPV 9.80 fLPLT 376 %NEUT 51.10 %%LYMP 36.10 %%MONO 6.10 %%EOS 6.30 %%BASO 0.40 %#NEUT 4.72 #LYMP 3.34 #MONO 0.56 #EOS 0.58 #BASO 0.04 MAGNESIUM 2.10 mg/dLHGB A1C 5.80 %PHOSPHORUS 3.90 mg/dLGLUCOSE 104.0 mg/dLSODIUM 139.0 mmol/LPOTASSIUM 3.80 mmol/LCHLORIDE 104.0 mmol/LCO2 21.0 mmol/LBUN 7.0 mg/dLCREATININE 0.70 mg/dLSGOT/AST 63.0 IU/LSGPT/ALT 40.0 IU/ LALK PHOS 69.0 IU/LTOTAL PROTEIN 8.0 g/dLALBUMIN 3.60 g/dLTOTAL BILI 0.20 mg/ dLCALCIUM 9.70 mg/dLeGFR 60 06/02/2014 11:45 AM FSH 6.20 mIU/mLTSH 3.980 uIU/mL History Of Immunizations Not available. History of Past Illness Name Date of Onset Comments Obesity Abdominal Tenderness 06/28/2013 Abdominal Wall Contusion 06/28/2013 Seroma 10/25/2013 Hematoma 08/30/2013 Contusion, abdominal wall 08/31/2013 Anxiety bipolar PTSD COPD Abdominal Tenderness Jun 28 2013 11:11AM Abdominal Wall Contusion Jun 28 2013 11:11AM Abdominal Wall Contusion Jul 19 2013 11:13AM Seroma Aug 23 2013 10:23AM Hematoma Aug 30 2013 10:14AM Contusion, abdominal wall Aug 23 2013 10:23AM Seroma Oct 25 2013 10:51AM Routine adult health maintenance Dec 20 2013 1:52PM Fatigue Dec 20 2013 1:52PM Obesity Dec 20 2013 1:52PM Depression Dec 20 2013 1:52PM Ischemic heart disease screen Dec 20 2013 1:52PM COPD (chronic obstructive pulmonary disease) Dec 20 2013 1:52PM JOSE ANGEL (obstructive sleep apnea) Dec 20 2013 1:52PM Shortness of breath Dec 20 2013 1:52PM Urinary frequency Dec 20 2013 1:52PM Elevated WBCs Dec 26 2013 10:43AM Elevated liver enzymes Dec 26 2013 10:43AM Abnormal PFT Jan 10 2014 11:53AM Anemia Jan 20 2014 10:49AM Elevated liver enzymes Jan 20 2014 10:49AM Shortness of breath Jan 20 2014 10:49AM Abnormal PFT Jan 20 2014 10:49AM Fever Jan 20 2014 10:49AM Low back pain Feb 17 2014 9:30AM Hip pain Feb 17 2014 9:30AM Depressive Disorder Feb 17 2014 9:30AM Depressive Disorder Apr 04 2014 10:05AM Urinary Incontinence Apr 04 2014 10:05AM Nightmares Apr 04 2014 10:05AM History of suicidal ideation Apr 04 2014 10:05AM Routine gynecological examination Jun 02 2014 10:36AM Dysmenorrhea Jun 02 2014 10:36AM Menorrhagia Jun 02 2014 10:36AM Obesity Jun 02 2014 10:36AM Dysmenorrhea Jun 02 2014 11:25AM Menorrhagia Jun 02 2014 11:25AM Screening Mammogram Jun 02 2014 11:25AM Depressive Disorder Jun 02 2014 9:37AM Urinary Incontinence Jun 02 2014 9:37AM Nightmares Jun 02 2014 9:37AM History of suicidal ideation Jun 02 2014 9:37AM Anemia Jun 02 2014 9:37AM Obesity Jun 02 2014 9:37AM Anxiety Disorder Jun 02 2014 9:37AM Chronic Obstructive Pulmonary Disease Jun 02 2014 9:37AM Bipolar disorder Jun 02 2014 9:37AM PTSD (post-traumatic stress disorder) Jun 02 2014 9:37AM JOSE ANGEL (obstructive sleep apnea) Jun 02 2014 9:37AM Elevated liver enzymes Jun 02 2014 9:37AM Impaired fasting glucose Jun 02 2014 9:37AM Ischemic heart disease screen Jun 02 2014 9:37AM JOSE ANGEL on CPAP Jun 30 2014 8:07AM Payers Insurance Name Company Name Plan Name Plan Number Policy Number Policy Group Number Start Date [facility] [id number] N/A History of Encounters Visit Date Visit Type Provider 06/30/2014 Office visit Gissel Sanchez TIP CUTTER 06/30/2014 Office visit Salena Badillo TIP CUTTER 06/02/2014 Office visit Gissel Sanchez TIP CUTTER 06/02/2014 Office visit Salena Badillo TIP CUTTER 04/04/2014 Office visit Gissel Sanchez TIP CUTTER 02/17/2014 Office visit Gissel Sanchez TIP CUTTER 02/10/2014 Surgery Lowell Vargas DO 01/29/2014 Hospital Lowell Vargas DO 01/29/2014 Hospital Lowell Vargas DO 01/20/2014 Office visit Gissel Sanchez TIP CUTTER 12/20/2013 Office visit Lowell Vargas DO 12/20/2013 Office visit Gissel Sanchez TIP CUTTER 11/16/2013 Surgery Lowell Vargas DO 11/03/2013 Hospital Lowell Vargas DO 11/03/2013 [facility] Natalia Jo MD 10/21/2013 Procedures Lowell Vargas DO 08/30/2013 Office visit Lowell Vargas DO 08/23/2013 Office visit Lowell Vargas DO 07/19/2013 Office visit Lowell Vargas DO 06/28/2013 Office visit Lowell Vargas DO 06/16/2013 [facility] Lowell Vargas DO
--- OUTSIDE RECORDS SUMMARY | 2018-05-17 16:22 | XMS REPORT ---
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 Role Phone PCP Unavailable Allergies and Adverse Reactions Name Reaction Notes iodine Latex natural rubber Plan of Treatment Planned Activity Comments Planned Date Planned Time Plan/Goal COMPLETE CBC W/AUTO DIFF WBC 01/20/2014 12:00 AM COMPREHEN METABOLIC PANEL 01/20/2014 12:00 AM COMPLETE CBC W/AUTO DIFF WBC 12/15/2014 12:00 AM COMPREHEN METABOLIC PANEL 12/15/2014 12:00 AM LIPID PANEL 12/15/2014 12:00 AM GLYCOSYLATED HEMOGLOBIN TEST 12/15/2014 12:00 AM Medications Active Name Start Date Estimated Completion Date SIG Comments Zoloft oral tablet 100 mg 02/17/2014 take 1 tablet by oral route daily Latuda oral tablet 60 mg take 1 tablet (60 mg) by oral route once daily with food (at least 350 calories) oxybutynin chloride oral tablet 5 mg 04/04/2014 take 1 tablet (5 mg) by oral route 2 times per day Minipress oral capsule 1 mg 04/04/2014 take 1 capsule (1 mg) by oral route 1 times per day buspirone oral tablet 10 mg take 1 tablet (10 mg) by oral route 3 times per day Trokendi XR oral capsule,extended release 24hr 50 mg take 1 capsule (50 mg) by oral route once daily Symbicort inhalation HFA aerosol inhaler 160-4.5 mcg/actuation 08/15/2014 inhale 2 puffs by inhalation route 2 times per day in the morning and evening diclofenac sodium oral tablet,delayed release (DR/EC) 75 mg 08/15/2014 take 1 tablet (75 mg) by oral route 2 times per day Name Start Date Expiration Date SIG Comments Skelaxin oral tablet 800 mg 10/21/2013 11/20/2013 take 1 tablet (800 mg) by oral route 3 times per day as needed for 30 days Augmentin oral tablet 324-125 mg 01/20/2014 01/30/2014 take 1 tablet by [...] route 3 times per day as needed [place] oral tablet 10-325 mg 04/04/2014 take 1 tablet by oral route every 6 hours as needed for pain meloxicam oral tablet 15 mg 04/04/2014 08/15/2014 take 1 tablet (15 mg) by oral route once daily Problem List Description Status Onset Abdominal Tenderness Active 06/28/2013 Abdominal Wall Contusion Active 06/28/2013 Seroma Active 10/25/2013 Hematoma Active 08/30/2013 Contusion, abdominal wall Active 08/31/2013 Vital Signs Date Time BP-Sys(mm[Hg] BP-Zenobia(mm[Hg]) HR(bpm) RR(rpm) Temp WT HT HC BMI BSA BMI Percentile O2 Sat(%) 08/15/2014 9:55:00 AM 118 mmHg 82 mmHg 78 bpm 20 rpm 98.3 F 350.6 lbs 65 in 58.34 kg/m2 2.70 m2 100 % 07/28/2014 10:19:00 AM 129 mmHg 73 mmHg 69 bpm 96.6 F 347 lbs 65 in 57.7432 kg/m 2.6867 m 06/30/2014 9:26:00 AM 142 mmHg 79 mmHg 60 bpm 97.6 F 341 lbs 65 in 56.74 kg/m2 2.66 m2 06/30/2014 8:05:00 AM 120 mmHg 80 mmHg 63 bpm 20 rpm 97.6 F 341.6 lbs 99 % 06/02/2014 10:34:00 AM 137 mmHg 79 mmHg 93 bpm 98.1 F 337 lbs 65 in 56.08 kg/m2 2.65 m2 06/02/2014 9:36:00 AM 122 mmHg 90 mmHg 67 bpm 20 rpm 97.8 F 337 lbs 65 in 56.0792 kg/m 2.6477 m 98 % 04/04/2014 9:58:00 AM 124 mmHg 84 mmHg 81 bpm 20 rpm 98.1 F 331 lbs 65 in 55.08 kg/m2 2.62 m2 97 % 02/17/2014 9:28:00 AM 124 mmHg 78 mmHg 78 bpm 20 rpm 97.2 F 340.4 lbs 65 in 56.6449 kg/m 2.661 m 99 % 02/10/2014 10:41:00 AM 129 mmHg 65 mmHg 75 bpm 20 rpm 97.6 F 336.312 lbs 65 in 55.96 kg/m2 2.65 m2 01/20/2014 10:46:00 AM 120 mmHg 88 mmHg 100 bpm 22 rpm 99.9 F 345.4 lbs 65 in 57.477 kg/m 2.6805 m 98 % 12/20/2013 1:50:00 PM 128 mmHg 90 mmHg 96 bpm 20 rpm 98.8 F 343.8 lbs 65 in 57.21 kg/m2 2.67 m2 99 % 12/20/2013 1:04:00 PM 148 mmHg 99 mmHg 92 bpm 22 rpm 98 F 345 lbs 65 in 57.4104 kg/m 2.679 m 11/16/2013 1:50:00 PM 157 mmHg 99 mmHg 84 bpm 22 rpm 97.4 F 349 lbs 65 in 58.08 kg/m2 2.69 m2 10/21/2013 1:02:00 PM 138 mmHg 82 mmHg 83 bpm 22 rpm 97 F 360.312 lbs 63 in 63.8258 kg/m 2.6953 m 08/30/2013 10:05:00 AM 123 mmHg 76 mmHg 90 bpm 20 rpm 97.2 F 358.312 lbs 62 in 65.54 kg/m2 2.67 m2 08/23/2013 9:25:00 AM 143 mmHg 82 mmHg 91 bpm 20 rpm 97.4 F 360 lbs 07/19/2013 10:52:00 AM 140 mmHg 95 mmHg 96 bpm 22 rpm 97 F 354 lbs 65 in 58.91 kg/m2 2.71 m2 06/28/2013 11:05:00 AM 145 mmHg 86 mmHg 75 bpm 20 rpm 97.6 F 353 lbs 65 in 58.7417 kg/m 2.7098 m Social History Name Description Comments Tobacco Alcohol [...] 12:00 AM US EXAM PELVIC COMPLETE Returned 06/09/2014 12:00 AM MAMMOGRAM SCREENING Returned 06/02/2014 12:00 AM SPECIMEN HANDLING OFFICE-LAB Reviewed 06/02/2014 12:00 AM ASSAY THYROID STIM HORMONE Returned 06/02/2014 12:00 AM ASSAY OF GONADOTROPIN (FSH) Returned 06/02/2014 12:00 AM ASSAY OF PROLACTIN Returned 06/02/2014 12:00 AM CYTOPATH C/V THIN LAYER Returned 06/02/2014 12:00 AM COMPLETE CBC W/AUTO DIFF WBC Returned 06/02/2014 12:00 AM COMPREHEN METABOLIC PANEL Returned 06/02/2014 12:00 AM LIPID PANEL Returned 06/02/2014 12:00 AM GLYCOSYLATED HEMOGLOBIN TEST Returned 07/28/2014 11:27 AM URINE TEST Reviewed 07/28/2014 12:00 AM BIOPSY OF UTERUS LINING Returned Results Summary Data and Description Results [...] 11:45 AM FSH 6.20 mIU/mLTSH 3.980 uIU/mL 07/28/2014 9:35 AM WBC 8.8 RBC 5.23 HGB 12.70 g/dLHCT 39.50 %MCV 76.0 fLMCH 24.30 pgMCHC 32.20 g/dLRDW CV 17.50 %MPV 9.70 fLPLT 247 %NEUT 58.40 %%LYMP 30.30 %%MONO 5.40 %%EOS 5.10 %%BASO 0.80 %#NEUT 5.12 #LYMP 2.66 #MONO 0.47 #EOS 0.45 #BASO 0.07 GLUCOSE 107.0 mg/dLSODIUM 140.0 mmol/LPOTASSIUM 4.60 mmol/ LCHLORIDE 108.0 mmol/LCO2 24.0 mmol/LBUN 10.0 mg/dLCREATININE 0.80 mg/dLSGOT/ AST 33.0 IU/LSGPT/ALT 24.0 IU/LALK PHOS 70.0 IU/LTOTAL PROTEIN 7.40 g/dLALBUMIN 4.10 g/dLTOTAL BILI 0.70 mg/dLCALCIUM 9.40 mg/dLeGFR >60 mL/min/1.73 [id number] 131.0 mg/dLCHOLESTEROL 170.0 mg/dLHDL 36.0 mg/dLLDL (CALC) 108.0 mg/dLHGB A1C 5.70 % 07/28/2014 11:27 AM Test, Urine negative History Of Immunizations Not available. History of [...] ANGEL on CPAP Jun 30 2014 8:07AM Menorrhagia Jun 30 2014 9:30AM Special investigations and examinations; examination or test; examination or test, negative result Jul 28 2014 11:27AM Abnormal Uterine Bleeding Jul 28 2014 11:20AM Anemia Aug 15 2014 9:58AM Obesity Aug 15 2014 9:58AM Anxiety Disorder Aug 15 2014 9:58AM Depressive Disorder Aug 15 2014 9:58AM Chronic Obstructive Pulmonary Disease Aug 15 2014 9:58AM Urinary Incontinence Aug 15 2014 9:58AM Nightmares Aug 15 2014 9:58AM History of suicidal ideation Aug 15 2014 9:58AM Bipolar disorder Aug 15 2014 9:58AM PTSD (post-traumatic stress disorder) Aug 15 2014 9:58AM JOSE ANGEL (obstructive sleep apnea) Aug 15 2014 9:58AM Elevated liver enzymes Aug 15 2014 9:58AM Impaired fasting glucose Aug 15 2014 9:58AM Ischemic heart disease screen Aug 15 2014 9:58AM Unsteady gait Aug 15 2014 9:58AM Lumbar pain Aug 15 2014 9:58AM Hip pain Aug 15 2014 9:58AM Payers Insurance Name Company Name Plan Name Plan Number Policy Number Policy Group Number Start Date [facility] [id number] N/A History of Encounters Visit Date Visit Type Provider 08/15/2014 Office visit Gissel Sanchez RAIL TECHNICIAN 07/28/2014 Procedures Que Roy MD 06/30/2014 Office visit Gissel Sanchez RAIL TECHNICIAN 06/30/2014 Office visit Salena Badillo RAIL TECHNICIAN 06/02/2014 Office visit Gissel Sanchez RAIL TECHNICIAN 06/02/2014 Office visit Salena Badillo RAIL TECHNICIAN 04/04/2014 Office visit Gissel Sanchez RAIL TECHNICIAN 02/17/2014 Office visit Gissel Sanchez RAIL TECHNICIAN 02/10/2014 Surgery Lowell Vargas DO 01/29/2014 Hospital Lowell Vargas DO 01/29/2014 Hospital Lowell Vargas DO 01/20/2014 Office visit Gissel Sanchez RAIL TECHNICIAN 12/20/2013 Office visit Lowell Vargas DO 12/20/2013 Office visit Gissel Sanchez RAIL TECHNICIAN 11/16/2013 Surgery Lowell Vargas DO 11/03/2013 Hospital Lowell Vargas DO 11/03/2013 Rebekah Jo MD 10/21/2013 Procedures Lowell Vargas DO 08/30/2013 Office visit Lowell Vargas DO 08/23/2013 Office visit Lowell Vargas DO 07/19/2013 Office visit Lowell Vargas DO 06/28/2013 Office visit Lowell Vargas DO 06/16/2013 [facility] Lowell Vargas DO
--- OUTSIDE RECORDS SUMMARY | 2018-05-17 16:22 | XMS REPORT ---
Author Gissel Mason [facility] Address [address] [place], [place] [id number] Care Team Providers Care Principal Programmer Name Role Phone Gissel Sanchez PCP Unavailable Allergies and Adverse Reactions Name Reaction Notes iodine Latex natural rubber Plan of Treatment Planned Activity Comments Planned Date Planned Time Plan/Goal POLYSOM 6/> YRS 4/> STACI 12/20/2013 12:00 AM COMPLETE CBC W/AUTO DIFF WBC 01/20/2014 12:00 AM COMPREHEN METABOLIC PANEL 01/20/2014 12:00 AM COMPLETE CBC W/AUTO DIFF WBC 12/15/2014 12:00 AM COMPREHEN METABOLIC PANEL 12/15/2014 12:00 AM LIPID PANEL 12/15/2014 12:00 AM GLYCOSYLATED HEMOGLOBIN TEST 12/15/2014 12:00 AM Medications Active Name Start Date Estimated Completion Date SIG Comments Zoloft 100 mg oral tablet 02/17/2014 take 1 tablet by oral route daily Latuda 60 mg oral tablet take 1 tablet (60 mg) by oral route once daily with food (at least 350 calories) Minipress 1 mg oral capsule 04/04/2014 take 1 capsule (1 mg) by oral route 1 times per day buspirone 10 mg oral tablet take 1 tablet (10 mg) by oral route 3 times per day Trokendi XR 50 mg oral capsule,extended release 24hr take 1 capsule (50 mg) by oral route once daily Symbicort 160-4.5 mcg/actuation inhalation HFA aerosol inhaler 08/15/2014 inhale 2 puffs by inhalation route 2 times per day in the morning and evening diclofenac sodium 75 mg oral tablet,delayed release (DR/EC) 08/15/2014 take 1 tablet (75 mg) by oral route 2 times per day oxybutynin chloride 5 mg oral tablet 09/22/2014 take 1 tablet (5 mg) by oral route 2 times per day Lysteda 650 mg oral tablet 10/30/2014 11/19/2014 take 2 tablets (1,300 mg) by oral route 3 times per day during menses for 5 days Name Start Date Expiration Date SIG Comments Skelaxin 800 mg oral tablet 10/21/2013 11/20/2013 take 1 tablet (800 mg) by oral route 3 times per day as needed for 30 days Augmentin 875-125 mg oral tablet 01/20/2014 01/30/2014 take 1 tablet by oral route every 12 hours for 10 days Discontinued Name Start Date Discontinued Date SIG Comments ibuprofen 800 mg oral tablet 12/20/2013 take 1 tablet by oral route every 6 hours as needed Percocet 5-325 mg oral tablet 10/21/2013 take 1 tablet by oral route every 4-6 hours as needed hydrocodone-acetaminophen 5-325 mg oral tablet 07/19/2013 1-2 tabs po q4-6 hrs PRN pain hydrocodone-acetaminophen 10-325 mg oral tablet 01/20/2014 take 1or 2 tablet by oral route every 4 hours as needed for pain prednisone 50 mg oral tablet 01/20/2014 take 1 tablet 13hrs before test, take 1 tablet 7hrs before test and 1 talbet 1 hours before test Symbicort 80-4.5 mcg/actuation inhalation HFA aerosol inhaler 01/30/2014 inhale 2 puffs by inhalation route 2 times per day in the morning and evening Augmentin 875-125 mg oral tablet 04/04/2014 take 1 tablet by oral route every 12 hours Skelaxin 800 mg oral tablet 04/04/2014 take 1 tablet (800 mg) by oral route 3 times per day as needed [place] 10-325 mg oral tablet 04/04/2014 take 1 tablet by oral route every 6 hours as needed for pain meloxicam 15 mg oral tablet 04/04/2014 08/15/2014 take 1 tablet (15 mg) by oral route once daily meloxicam 15 mg oral tablet 09/22/2014 10/30/2014 take 1 tablet (15 mg) by oral route once daily for 30 days Problem List Description Status Onset Abdominal Tenderness Active 06/28/2013 Abdominal Wall Contusion Active 06/28/2013 Seroma Active 10/25/2013 Hematoma Active 08/30/2013 Contusion, abdominal wall Active 08/31/2013 Vital Signs Date Time BP-Sys(mm[Hg] BP-Zenobia(mm[Hg]) HR(bpm) RR(rpm) Temp WT HT HC BMI BSA BMI Percentile O2 Sat(%) 10/30/2014 1:10:00 PM 121 mmHg 67 mmHg 68 bpm 20 rpm 97.6 F 326.8 lbs 65 in 54.38 kg/m2 2.61 m2 98 % 10/30/2014 11:10:00 AM 127 mmHg 75 mmHg 75 bpm 97.4 F 326.5 lbs 65 in 54.3319 kg/m 2.6061 m 08/15/2014 9:55:00 AM 118 mmHg 82 mmHg [...] m Social History Name Description Comments Tobacco Former smoker Quit 2007 Alcohol Use - Rare History of Procedures [...] 01/10/2014 12:[address] THORAX W/DYE Returned 02/17/2014 12:00 AM RADEX SPINE LUMBOSACRAL 2/3 VIEWS Returned 02/17/2014 12:00 AM RADEX HIP UNILATERAL COMPLETE MINIMUM 2 VIEWS Returned 06/09/2014 12:00 AM US EXAM PELVIC [...] #BASO 0.04 MAGNESIUM 2.10 mg/dLHGB A1C 5.80 %Est Avg Glucose 119.8 mg/ dLPHOSPHORUS 3.90 mg/dLGLUCOSE 104.0 mg/dLSODIUM 139.0 mmol/LPOTASSIUM 3.80 mmol /LCHLORIDE 104.0 mmol/LCO2 21.0 mmol/LBUN 7.0 mg/dLCREATININE 0.70 mg/dLSGOT/ AST 63.0 IU/LSGPT/ALT 40.0 IU/LALK PHOS 69.0 IU/LTOTAL PROTEIN 8.0 g/dLALBUMIN 3.60 g/dLTOTAL BILI 0.20 mg/dLCALCIUM 9.70 mg/dLeGFR 60 06/02/2014 11:45 AM FSH 6.20 mIU/mLTSH 3.980 uIU/mLProlactin 19.30 ng/mL 07/28/2014 9:35 AM WBC 8.8 RBC 5.23 [...] BILI 0.70 mg/dLCALCIUM 9.40 mg/dLeGFR >60 mL/min/1.73 [id number] 131.0 mg/dLCHOLESTEROL 170.0 mg/dLHDL 36.0 mg/dLLDL (CALC) 108.0 mg/dLHGB A1C 5.70 %Est Avg Glucose 116.9 mg/dL 07/28/2014 11:27 AM Test, Urine negative History [...] 9:58AM Hip pain Aug 15 2014 9:58AM Menorrhagia Oct 30 2014 11:16AM Morbid Obesity Oct 30 2014 1:12PM Payers Insurance Name Company Name Plan Name Plan Number Policy Number Policy Group Number Start Date Bcbs [facility] [id number] N/A History of Encounters Visit Date Visit Type Provider 10/30/2014 Office visit Gissel Sanchez RN SANE 10/30/[address] REBECA LINK MD 08/15/2014 Office visit Gissel Sanchez RN SANE 07/28/2014 Procedures Que Roy MD 06/30/2014 Office visit Salena Badillo RN SANE 06/30/2014 Office visit Gissel Sanchez RN SANE 06/02/2014 Office visit Salena Badillo RN SANE 06/02/2014 Office visit Gissel Sanchez RN SANE 04/04/2014 Office visit Gissel Sanchez RN SANE 02/17/2014 Office visit Gissel Sanchez RN SANE 02/10/2014 Surgery Lowell Bouman DO 01/29/2014 Hospital Lowell Bouman DO 01/29/2014 Hospital Lowell Tanneruman DO 01/20/2014 Office visit Gissel Sanchez RN SANE 12/20/2013 Office visit Gissel Sanchez RN SANE 12/20/2013 Office visit Lowell Vargas DO 11/16/2013 Surgery Lowell Tanneruman DO 11/03/2013 [facility] Natalia Jo MD 11/03/2013 Hospital Lowell Bouman DO 10/21/2013 Procedures Lowell Tanneruman DO 08/30/2013 Office visit Lowell Tanneruman DO 08/23/2013 Office visit Lowell Tanneruman DO 07/19/2013 Office visit Lowell Vargas DO 06/28/2013 Office visit Lowell Tanneruman DO 06/16/2013 Hospital Lowell Bouman DO
--- OUTSIDE RECORDS SUMMARY | 2018-05-17 16:23 | XMS REPORT ---
Author Salena Waldrop [facility] Address [address] [place], [place] [id number] Care Team Providers Care Account Coordinator Name Role Phone Salena Badillo PCP Unavailable Allergies and Adverse Reactions Name [...] take 1 tablet by oral route daily Minipress 1 mg oral capsule 04/04/2014 take 1 capsule (1 mg) by oral route 1 times per day buspirone 10 mg oral tablet take 1 tablet (10 mg) by oral route 3 times per day Trokendi XR 50 mg oral capsule,extended release 24hr take 1 capsule (50 mg) by oral route once daily diclofenac sodium 75 mg oral tablet,delayed release (DR/EC) 08/15/2014 take 1 tablet (75 mg) by oral route 2 times per day oxybutynin chloride 5 mg oral tablet 09/22/2014 take 1 tablet (5 mg) by oral route 2 times per day Symbicort 160-4.5 mcg/actuation inhalation HFA aerosol inhaler 11/13/2014 inhale 2 puffs by inhalation route 2 times per day in the morning and evening diclofenac sodium 75 mg oral tablet,delayed release (DR/EC) 12/12/2014 TAKE ONE TABLET BY MOUTH TWICE DAILY Name Start Date Expiration Date SIG Comments Skelaxin 800 mg oral tablet 10/21/2013 11/20/2013 take 1 tablet (800 mg) by oral route 3 times per day as needed for 30 days Augmentin 875-125 mg oral tablet 01/20/2014 01/30/2014 take 1 tablet by oral route every 12 hours for 10 days Lysteda 650 mg oral tablet 10/30/2014 11/19/2014 take 2 tablets (1,300 mg) by oral route 3 times per day during menses for 5 days Discontinued Name Start Date Discontinued Date [...] route 3 times per day as needed [place] 10-325 mg oral tablet 04/04/2014 take 1 tablet by oral route every 6 hours as needed for pain Latuda 60 mg oral tablet 01/29/2015 take 1 tablet (60 mg) by oral route once daily with food (at least 350 calories) meloxicam 15 mg oral tablet 04/04/2014 08/15/2014 [...] HC BMI BSA BMI Percentile O2 Sat(%) 01/29/2015 10:51:00 AM 153 mmHg 98 mmHg 100 bpm 97.7 F 290 lbs 65 in 48.26 kg/m2 2.46 m2 10/30/2014 1:10:00 PM 121 mmHg 67 mmHg 68 bpm 20 rpm 97.6 F 326.8 lbs 65 in 54.3818 kg/m 2.6073 m 98 % 10/30/2014 11:10:00 AM 127 mmHg 75 mmHg 75 bpm 97.4 F 326.5 lbs 65 in 54.33 kg/m2 2.61 m2 08/15/2014 9:55:00 AM 118 mmHg 82 mmHg 78 bpm 20 rpm 98.3 F 350.6 lbs 65 in 58.3423 kg/m 2.7006 m 100 % 07/28/2014 10:19:00 AM 129 mmHg 73 mmHg 69 bpm 96.6 F 347 lbs 65 in 57.74 kg/m2 2.69 m2 06/30/2014 9:26:00 AM 142 mmHg 79 mmHg 60 bpm 97.6 F 341 lbs 65 in 56.7448 kg/m 2.6634 m 06/30/2014 8:05:00 AM 120 mmHg 80 mmHg [...] m2 Social History Name Description Comments Tobacco Current every day smoker Alcohol Use - Rare History of Procedures [...] 0.56 #EOS 0.58 #BASO 0.04 MAGNESIUM 2.10 mg/dLEst Avg Glucose 119.8 mg/dLPHOSPHORUS 3.90 mg/dLGLUCOSE 104.0 mg/dLSODIUM 139.0 mmol/LPOTASSIUM 3.80 mmol/LCHLORIDE 104.0 mmol/LCO2 21.0 mmol/LBUN 7.0 mg/dLCREATININE 0.70 mg/dLSGOT/AST 63.0 IU/LSGPT/ ALT 40.0 IU/LALK PHOS 69.0 IU/LTOTAL PROTEIN 8.0 [...] BILI 0.70 mg/dLCALCIUM 9.40 mg/dLeGFR >60 mL/min/1.73 [id number] 131.0 mg/dLCHOLESTEROL 170.0 mg/dLHDL 36.0 mg/dLLDL (CALC) 108.0 mg/dLEst Avg Glucose 116.9 mg/dL 07/28/2014 11:27 AM [...] 11:16AM Morbid Obesity Oct 30 2014 1:12PM Menorrhagia Jan 29 2015 10:59AM Metrorrhagia Jan 29 2015 10:59AM Payers Insurance Name Company Name Plan Name Plan Number Policy Number Policy Group Number [id number] N/A History of Encounters Visit Date Visit Type Provider 01/29/2015 Office visit Salena Badillo NARCOTICS AND VICE DETECTIVE 10/30/2014 Office visit Gissel Sanchez NARCOTICS AND VICE DETECTIVE 10/30/[address] REBECA LINK MD 08/15/2014 Office visit Gissel Sanchez NARCOTICS AND VICE DETECTIVE 07/28/2014 Procedures Que Roy MD 06/30/2014 Office visit Salena Badillo NARCOTICS AND VICE DETECTIVE 06/30/2014 Office visit Gsisel Sanchez NARCOTICS AND VICE DETECTIVE 06/02/2014 Office visit Salena Badillo NARCOTICS AND VICE DETECTIVE 06/02/2014 Office visit Gissel Sanchez NARCOTICS AND VICE DETECTIVE 04/04/2014 Office visit Gissel Sanchez NARCOTICS AND VICE DETECTIVE 02/17/2014 Office visit Gissel Sanchez NARCOTICS AND VICE DETECTIVE 02/10/2014 Surgery Lowell Vargas DO 01/29/2014 Hospital Lowell Vargas DO 01/29/2014 Hospital Lowell Vargas DO 01/20/2014 Office visit Gissel Sanchez NARCOTICS AND VICE DETECTIVE 12/20/2013 Office visit Gissel Sanchez NARCOTICS AND VICE DETECTIVE 12/20/2013 Office visit Lowell Vargas DO 11/16/2013 Surgery Lowell Vargas DO 11/03/2013 [facility] Natalia Jo MD 11/03/2013 Hospital Lowell Vargas DO 10/21/2013 Procedures Lowell Vargas DO 08/30/2013 Office visit Lowell Vargas DO 08/23/2013 Office visit Lowell Vargas DO 07/19/2013 Office visit Lowell Vargas DO 06/28/2013 Office visit Lowell Vargas DO 06/16/2013 Hospital Lowell Vargas DO
--- OUTSIDE RECORDS SUMMARY | 2018-05-17 16:24 | XMS REPORT ---
Author Author [facility] Organization [facility] Address [address] [place], [place] [address] Care Team Providers Care Resolution Analyst Name Role Phone PCP Unavailable Allergies and [...] route 3 times per day as needed [place] oral tablet 10-325 mg 04/04/2014 take 1 tablet by oral route every 6 hours as needed for pain Problem List Description Status Onset Abdominal Tenderness Active 06/28/2013 Abdominal Wall Contusion Active 06/28/2013 Seroma Active 10/25/2013 Hematoma Active 08/30/2013 Contusion, abdominal wall Active 08/31/2013 Vital Signs Date Time BP-Sys(mm[Hg] BP-Zenobia(mm[Hg]) HR(bpm) RR(rpm) Temp WT HT HC BMI BSA BMI Percentile O2 Sat(%) 06/30/2014 9:26:00 AM 142 mmHg 79 mmHg [...] F 349 lbs 65 in 58.076 kg/m 2.69 m2 10/21/2013 1:02:00 PM 138 mmHg 82 mmHg 83 bpm 22 rpm 97 F 360.312 lbs 63 in 63.83 kg/m2 2.6953 m 08/30/2013 10:05:00 AM 123 mmHg 76 mmHg 90 bpm 20 rpm 97.2 F 358.312 lbs 62 in 65.5355 kg/m 2.67 m2 08/23/2013 9:25:00 AM 143 mmHg 82 mmHg 91 bpm 20 rpm 97.4 F 360 lbs 07/19/2013 10:52:00 AM 140 mmHg 95 mmHg 96 bpm 22 rpm 97 F 354 lbs 65 in 58.9081 kg/m 2.71 m2 06/28/2013 11:05:00 AM 145 mmHg 86 mmHg 75 bpm 20 rpm 97.6 F 353 lbs 65 in 58.74 kg/m2 2.7098 m Social History Name Description Comments [...] 2014 8:07AM Menorrhagia Jun 30 2014 9:30AM Payers Insurance Name Company Name Plan Name Plan Number Policy Number Policy Group Number [id number] N/A History of Encounters Visit Date Visit Type Provider 06/30/2014 Office visit Gissel Sancehz TERRAZZO SUPERVISOR 06/30/2014 Office visit Salena Badillo TERRAZZO SUPERVISOR 06/02/2014 Office visit Gissel Sanchez TERRAZZO SUPERVISOR 06/02/2014 Office visit Salena Badillo TERRAZZO SUPERVISOR 04/04/2014 Office visit Gissel Sanchez TERRAZZO SUPERVISOR 02/17/2014 Office visit Gissel Sanchez TERRAZZO SUPERVISOR 02/10/2014 Surgery Lowell Tanneruman DO 01/29/2014 Hospital Lowell Vargas DO 01/29/2014 Hospital Lowell Vargas DO 01/20/2014 Office visit Gissel Sanchez TERRAZZO SUPERVISOR 12/20/2013 Office visit Lowell Vargas DO 12/20/2013 Office visit Gissel Sanchez TERRAZZO SUPERVISOR 11/16/2013 Surgery Lowell Hartuman DO 11/03/2013 Hospital Lowell Vargas DO 11/03/2013 [facility] Natalia Jo MD 10/21/2013 Procedures Lowell Vargas DO 08/30/2013 Office visit Lowell Vargas DO 08/23/2013 Office visit Lowell Vargas DO 07/19/2013 Office visit Lowell Vargas DO 06/28/2013 Office visit Lowell Vargas DO 06/16/2013 [facility] Lowell Vargas DO
--- OUTSIDE RECORDS SUMMARY | 2018-05-17 16:24 | XMS REPORT ---
Author Author [facility] Organization [facility] Address [address] [place], [place] [id number] Care Team Providers Care Insurance Loss Adjuster Name Role Phone PCP Unavailable Allergies and Adverse Reactions Name Reaction Notes iodine Latex natural rubber Plan of Treatment Planned Activity Comments Planned Date Planned Time Plan/Goal COMPLETE CBC W/AUTO DIFF WBC 01/20/2014 12:00 AM COMPREHEN METABOLIC PANEL 01/20/2014 12:00 AM Medications Active Name Start Date [...] route 3 times per day as needed [place] oral tablet 10-325 mg 04/04/2014 take 1 tablet by oral route every 6 hours as needed for pain Problem List Description Status Onset Abdominal Tenderness Active 06/28/2013 Abdominal Wall Contusion Active 06/28/2013 Seroma Active 10/25/2013 Hematoma Active 08/30/2013 Contusion, abdominal wall Active 08/31/2013 Vital Signs Date Time BP-Sys(mm[Hg] BP-Zenobia(mm[Hg]) HR(bpm) RR(rpm) Temp WT HT HC BMI BSA BMI Percentile O2 Sat(%) 07/28/2014 10:19:00 AM 129 mmHg 73 mmHg [...] Returned 07/28/2014 11:27 AM URINE TEST Reviewed Results Summary Data and Description Results 06/17/2013 [...] BILI 0.70 mg/dLCALCIUM 9.40 mg/dLeGFR >60 mL/min/1.73 [id number] 131.0 mg/dLCHOLESTEROL 170.0 mg/dLHDL 36.0 mg/dLLDL (CALC) [...] test, negative result Jul 28 2014 11:27AM Payers Insurance Name Company Name Plan Name Plan Number Policy Number Policy Group Number Start Date [facility] [id number] N/A History of Encounters Visit Date Visit Type Provider 07/28/2014 Procedures Que Roy MD 06/30/2014 Office visit Gissel Sanchez STEAM DRIER OPERATOR 06/30/2014 Office visit Salena Badillo STEAM DRIER OPERATOR 06/02/2014 Office visit Gissel Sanchez STEAM DRIER OPERATOR 06/02/2014 Office visit Salena Badillo STEAM DRIER OPERATOR 04/04/2014 Office visit Gissel Sanchez STEAM DRIER OPERATOR 02/17/2014 Office visit Gissel Sanchez STEAM DRIER OPERATOR 02/10/2014 Surgery Lowell Vargas DO 01/29/2014 Hospital Lowell Vargas DO 01/29/2014 [facility] Lowell Vargas DO 01/20/2014 Office visit Gissel Sanchez APRN 12/20/2013 Office visit Lowell Vargas DO 12/20/2013 Office visit Gissel Sanchez APRN 11/16/2013 Surgery Lowell Vargas DO 11/03/2013 Hospital Lowell Vargas DO 11/03/2013 [facility] Natalia Jo MD 10/21/2013 Procedures Lowell Vargas DO 08/30/2013 Office visit Lowell Vargas DO 08/23/2013 Office visit Lowell Vargas DO 07/19/2013 Office visit Lowell Vargas DO 06/28/2013 Office visit Lowell Vargas DO 06/16/2013 [facility] Lowell Vargas DO
--- OUTSIDE RECORDS SUMMARY | 2018-05-17 16:25 | XMS REPORT ---
Author Yakelin Beyer [facility] Address [address] [place], [place] [address] Care Team Providers Care Fireworks Maker Name Role Phone Yakelin Hawk PCP Unavailable Allergies and Adverse Reactions Name [...] route 3 times per day as needed [place] 10-325 mg oral tablet 04/04/2014 take 1 [...] BMI BSA BMI Percentile O2 Sat(%) 10/30/2014 11:10:00 AM 127 mmHg 75 mmHg [...] m2 Social History Name Description Comments Tobacco Former smoker Quit 2006 Alcohol Use - Rare History of Procedures [...] BILI 0.70 mg/dLCALCIUM 9.40 mg/dLeGFR >60 mL/min/1.73 [id number] 131.0 mg/dLCHOLESTEROL 170.0 mg/dLHDL 36.0 mg/dLLDL (CALC) [...] 2014 9:58AM Menorrhagia Oct 30 2014 11:16AM Payers Insurance Name Company Name Plan Name Plan Number Policy Number Policy Group Number [id number] N/A History of Encounters Visit Date Visit Type Provider 10/30/[address] Yakelin Hawk MD 08/15/2014 Office visit Gissel Sanchez MOLASSES COLORING OPERATOR 07/28/2014 Procedures Que Roy MD 06/30/2014 Office visit Salena Badillo MOLASSES COLORING OPERATOR 06/30/2014 Office visit Gissel Sanchez MOLASSES COLORING OPERATOR 06/02/2014 Office visit Salena Badillo MOLASSES COLORING OPERATOR 06/02/2014 Office visit Gissel Sanchez MOLASSES COLORING OPERATOR 04/04/2014 Office visit Gissel Sanchez MOLASSES COLORING OPERATOR 02/17/2014 Office visit Gissel Sanchez MOLASSES COLORING OPERATOR 02/10/2014 Surgery Lowell Vargas DO 01/29/2014 Hospital Lowell Vargas DO 01/29/2014 Hospital Lowell Vargas DO 01/20/2014 Office visit Gissel Sanchez MOLASSES COLORING OPERATOR 12/20/2013 Office visit Gissel Sanchez MOLASSES COLORING OPERATOR 12/20/2013 Office visit Lowell Vargas DO 11/16/2013 Surgery Lowell Vargas DO 11/03/2013 [facility] Natalia Jo MD 11/03/2013 [facility] Lowell Vargas DO 10/21/2013 Procedures Lowell Vargas DO 08/30/2013 Office visit Lowell Vargas DO 08/23/2013 Office visit Lowell Vargas DO 07/19/2013 Office visit Lowell Vargas DO 06/28/2013 Office visit Lowell Vargas DO 06/16/2013 [facility] Lowell Vargas DO
--- OUTSIDE RECORDS SUMMARY | 2018-05-17 16:26 | XMS REPORT ---
Author Gissel Mason [facility] Address [address] [place], [place] [id number] Care Team Providers Care Dining Room Helper Name Role Phone Gissel Sanchez PCP Unavailable [...] route 3 times per day as needed [place] 10-325 mg oral tablet 04/04/2014 take 1 [...] BILI 0.70 mg/dLCALCIUM 9.40 mg/dLeGFR >60 mL/min/1.73 [id number] 131.0 mg/dLCHOLESTEROL 170.0 mg/dLHDL 36.0 mg/dLLDL (CALC) [...] Number Policy Group Number Start Date Bcbs [facility] [id number] N/A History of Encounters Visit Date Visit Type Provider 10/30/2014 Office visit Gissel Sanchez CORPORATE ACCOUNTING MANAGER 10/30/[address] REBECA LINK MD 08/15/2014 Office visit Gissel Sanchez CORPORATE ACCOUNTING MANAGER 07/28/2014 Procedures Que Roy MD 06/30/2014 Office visit Salena Badillo CORPORATE ACCOUNTING MANAGER 06/30/2014 Office visit Gissel Sanchez CORPORATE ACCOUNTING MANAGER 06/02/2014 Office visit Salena Badillo CORPORATE ACCOUNTING MANAGER 06/02/2014 Office visit Gissel Sanchez CORPORATE ACCOUNTING MANAGER 04/04/2014 Office visit Gissel Sanchez CORPORATE ACCOUNTING MANAGER 02/17/2014 Office visit Gissel Sanchez CORPORATE ACCOUNTING MANAGER 02/10/2014 Surgery Lowell Bouman DO 01/29/2014 Hospital Lowell Bouman DO 01/29/2014 Hospital Lowell Tanneruman DO 01/20/2014 Office visit Gissel Sanchez CORPORATE ACCOUNTING MANAGER 12/20/2013 Office visit Gissel Sanchez CORPORATE ACCOUNTING MANAGER 12/20/2013 Office visit Lowell Vargas DO 11/16/2013 Surgery Lowell Tanneruman DO 11/03/2013 [facility] Natalia Jo MD 11/03/2013 Hospital Lowell Bouman DO 10/21/2013 Procedures Lowell Tanneruman DO 08/30/2013 Office visit Lowell Tanneruman DO 08/23/2013 Office visit Lowell Tanneruman DO 07/19/2013 Office visit Lowell Vargas DO 06/28/2013 Office visit Lowell Tanneruman DO 06/16/2013 Hospital Lowell Bouman DO
--- OUTSIDE RECORDS SUMMARY | 2018-05-17 16:27 | XMS REPORT ---
Author Gissel Mason [facility] Address [address] [place], [place] [address] Care Team Providers Care Pile Driver Operator Name Role Phone Gissel Sanchez PCP Unavailable [...] route 3 times per day as needed [place] 10-325 mg oral tablet 04/04/2014 take 1 [...] BMI BSA BMI Percentile O2 Sat(%) 01/29/2015 1:16:00 PM 128 mmHg 80 mmHg 90 bpm 20 rpm 97.8 F 290.6 lbs 98 % 01/29/2015 10:51:00 AM 153 mmHg 98 mmHg 100 bpm 97.7 F 290 lbs 65 in 48.258 kg/m 2.4562 m 10/30/2014 1:10:00 PM 121 mmHg 67 mmHg [...] m Social History Name Description Comments Tobacco Current [...] BILI 0.70 mg/dLCALCIUM 9.40 mg/dLeGFR >60 mL/min/1.73 [id number] 131.0 mg/dLCHOLESTEROL 170.0 mg/dLHDL 36.0 mg/dLLDL (CALC) [...] 2015 10:59AM Metrorrhagia Jan 29 2015 10:59AM Dizziness Jan 29 2015 1:19PM Morbid obesity, unspecified obesity type Jan 29 2015 1:19PM Chronic low back pain Jan 29 2015 1:19PM Payers Insurance Name Company Name Plan Name Plan Number Policy Number Policy Group Number [facility] [id number] N/A History of Encounters Visit Date Visit Type Provider 01/29/2015 Office visit Gissel Sanchez DATA ACQUISITION TECHNICIAN 01/29/2015 Office visit Salena Badillo DATA ACQUISITION TECHNICIAN 10/30/2014 Office visit Gissel Sanchez DATA ACQUISITION TECHNICIAN 10/30/[address] REBECA LINK MD 08/15/2014 Office visit Gissel Sanchez DATA ACQUISITION TECHNICIAN 07/28/2014 Procedures Que Roy MD 06/30/2014 Office visit Salena Badillo DATA ACQUISITION TECHNICIAN 06/30/2014 Office visit Gissel Sanchez DATA ACQUISITION TECHNICIAN 06/02/2014 Office visit Salena Badillo DATA ACQUISITION TECHNICIAN 06/02/2014 Office visit Gissel Sanchez DATA ACQUISITION TECHNICIAN 04/04/2014 Office visit Gissel Sanchez DATA ACQUISITION TECHNICIAN 02/17/2014 Office visit Gissel Sanchez DATA ACQUISITION TECHNICIAN 02/10/2014 Surgery Lowell Vargas DO 01/29/2014 Hospital Lowell Vargas DO 01/29/2014 Hospital Lowell Vargas DO 01/20/2014 Office visit Gissel Sanchez DATA ACQUISITION TECHNICIAN 12/20/2013 Office visit Gissel Sanchez DATA ACQUISITION TECHNICIAN 12/20/2013 Office visit Lowell Vargas DO 11/16/2013 Surgery Lowell Vargas DO 11/03/2013 Rebekah Jo MD 11/03/2013 Hospital Lowell Vargas DO 10/21/2013 Procedures Lowell Vargas DO 08/30/2013 Office visit Lowell Vargas DO 08/23/2013 Office visit Lowell Vargas DO 07/19/2013 Office visit Lowell Vargas DO 06/28/2013 Office visit Lowell Vargas DO 06/16/2013 Hospital Lowell Vargas DO
--- OUTSIDE RECORDS SUMMARY | 2018-05-17 16:28 | XMS REPORT ---
Author Author [facility] Organization [facility] Address [address] [place], [place] [address] Care Team Providers Care Inpatient Pharmacist Name Role Phone PCP Unavailable Allergies and [...] route 3 times per day as needed Maud oral tablet 10-325 mg 04/04/2014 take 1 [...] BILI 0.70 mg/dLCALCIUM 9.40 mg/dLeGFR >60 mL/min/1.73 [id number] 131.0 mg/dLCHOLESTEROL 170.0 mg/dLHDL 36.0 mg/dLLDL (CALC) [...] Abnormal Uterine Bleeding Jul 28 2014 11:20AM Payers Insurance Name Company Name Plan Name Plan Number Policy Number Policy Group Number [id number] N/A History of Encounters Visit Date Visit Type Provider 07/28/2014 Procedures Que Roy MD 06/30/2014 Office visit Gissel Sanchez INSPECTOR MISSILE 06/30/2014 Office visit Salena Badillo INSPECTOR MISSILE 06/02/2014 Office visit Gissel Sanchez INSPECTOR MISSILE 06/02/2014 Office visit Salena Badillo INSPECTOR MISSILE 04/04/2014 Office visit Gissel Sanchez INSPECTOR MISSILE 02/17/2014 Office visit Gissel Sanchez INSPECTOR MISSILE 02/10/2014 Surgery Lowell Vargas DO 01/29/2014 Hospital Lowell Vargas DO 01/29/2014 Hospital Lowell Vargas DO 01/20/2014 Office visit Gissel Sanchez INSPECTOR MISSILE 12/20/2013 Office visit Lowell Vargas DO 12/20/2013 Office visit Gissel Sanchez INSPECTOR MISSILE 11/16/2013 Surgery Lowell Vargas DO 11/03/2013 Hospital Lowell Vargas DO 11/03/2013 [facility] Natalia Jo MD 10/21/2013 Procedures Lowell Vargas DO 08/30/2013 Office visit Lowell Vargas DO 08/23/2013 Office visit Lowell Vargas DO 07/19/2013 Office visit Lowell Vargas DO 06/28/2013 Office visit Lowell Vargas DO 06/16/2013 [facility] Lowell Vargas DO
--- OUTSIDE RECORDS SUMMARY | 2018-05-17 16:29 | XMS REPORT ---
Author Author HENRIQUE RACHEL [facility] eClinicalWorks Address Unknown Phone Unavailable Care Team Providers Care Dairy Feed Sales Consultant Name Role Phone HENRIQUE RACHEL CP Unavailable Allergies No Known Allergies Problems Problem Type Condition Code Onset Dates Condition Status Problem Obstructive sleep apnea syndrome G47.33 Active Problem Status following surgery for weight loss Z98.84 Active Problem Depression F32.9 Active Problem Hearing difficulty of both ears H91.93 Active Problem Chronic obstructive pulmonary disease, unspecified COPD type J44.9 Active Problem Obesity, unspecified obesity severity, unspecified obesity type E66.9 Active Problem Insulin resistance E88.81 Active Problem Amenorrhea N91.2 Active Medications No Known Medications Results No Known Results Summary Purpose eClinicalWorks Submission
--- OUTSIDE RECORDS SUMMARY | 2018-05-17 16:29 | XMS REPORT ---
Author Author HENRIQUE RACHEL [facility] eClinicalWorks Address Unknown Phone Unavailable Care Team Providers Care Tensioning Machine Operator Name Role Phone HENRIQUE RACHEL Unavailable Allergies, Adverse Reactions, Alerts Substance Reaction Event Type Iodine Info Not Available Drug Allergy Natural rubber Info Not Available Non Drug Allergy Latex Info Not Available Non Drug Allergy Problems Problem Type Condition Code Onset Dates Condition Status Problem Obstructive sleep apnea syndrome G47.33 Active Problem Chronic obstructive pulmonary disease, unspecified COPD type J44.9 Active Problem Obesity, unspecified obesity severity, unspecified obesity type E66.9 Active Assessment Urinary frequency R35.0 Active Assessment Dorsalgia, unspecified M54.9 Active Problem Urinary frequency R35.0 Active Problem Hearing difficulty of both ears H91.93 Active Problem Dorsalgia, unspecified M54.9 Active Problem Insulin resistance E88.81 Active Problem Amenorrhea N91.2 Active Problem Status following surgery for weight loss Z98.84 Active Problem Depression F32.9 Active Medications Medication Code System Code Instructions Start Date End Date Status Dosage Childrens Multivitamin [facility] [address] 60 MG Orally Once a day 1 tablet Advair Diskus [facility] [address]-88 250-50 MCG/DOSE Inhalation Twice a day 1 puff Vitamin B-12 [facility] 41446[address] 1000 MCG/15ML Orally Once a day 1ml ProAir HFA [facility] [address]-67 108 (90 Base) MCG/ACT Inhalation every 4 hrs 2 puffs as needed OneTouch Ultra 2 [facility] [address]-11 w/Device subcutaneously Once a day prn July 19, 2015 as directed OneTouch Ultra Test [facility] 0 1 subcutaneously Once a day prn July 19, 2015 as directed Calcium 1200 [facility] 03[address]885 6762-3236 MG-UNIT Orally Once a day 1 tablet with a meal Montelukast Sodium [facility] [address]-66 10 MG Orally Once a day 1 tablet in the evening Zoloft [facility] [address]-01 100 MG Orally Once a day 1 tablet Spiriva HandiHaler [facility] [address]-22 18 MCG Inhalation not defined Procedures Procedure Coding System Code Date Office Visit, Est Pt., Level 4 CPT-4 04231 Oct 11, 2015 Vital Signs Date/Time: Oct 11, 2015 Cardiac Monitoring Heart Rate 74 bpm Weight 203. lbs Height 65 in BMI 33.78 Index Blood Pressure Diastolic 78 mmHg Blood Pressure Systolic 112 mmHg Results No Known Results Summary Purpose eClinicalWorks Submission
--- OUTSIDE RECORDS SUMMARY | 2018-05-17 16:29 | XMS REPORT ---
Author Author BEKA DUBON eClinicalWorks Address Unknown Phone Unavailable Care Team Providers Care Podiatric Assistant Name Role Phone BEKA DUBON Unavailable Allergies No Known Allergies Problems Problem Type Condition Code Onset Dates Condition Status Assessment Negative test Z32.02 Active Medications No Known Medications Procedures Procedure Coding System Code Date URINE TEST CPT-4 23657 Feb 13, 2015 Results Name Result Date Reference Range Unit Abnormality Flag TEST, URINE (IN HOUSE) ----RESULTS negative [id number] ----Lot # [id number] ----Control + [id number] ----Exp date [id number] Summary Purpose eClinicalWorks Submission
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
--- OUTSIDE RECORDS SUMMARY | 2018-05-17 16:29 | XMS REPORT ---
Author Gissel Mason [facility] Address [address] [place], [place] [address] Care Team Providers Care Plan Checker Name Role Phone Gissel Sanchez PCP Unavailable [...] route 3 times per day as needed [place] 10-325 mg oral tablet 04/04/2014 take 1 [...] BILI 0.70 mg/dLCALCIUM 9.40 mg/dLeGFR >60 mL/min/1.73 [id number] 131.0 mg/dLCHOLESTEROL 170.0 mg/dLHDL 36.0 mg/dLLDL (CALC) [...] Number Start Date [facility] [id number] N/A History of Encounters Visit Date Visit Type Provider 10/30/2014 Office visit Gissel Sanchez CHEMIST STEROIDS 10/30/[address] REBECA LINK MD 08/15/2014 Office visit Gissel Sanchez CHEMIST STEROIDS 07/28/2014 Procedures Que Roy MD 06/30/2014 Office visit Salena Badillo CHEMIST STEROIDS 06/30/2014 Office visit Gissel Sanchez CHEMIST STEROIDS 06/02/2014 Office visit Salena Badillo CHEMIST STEROIDS 06/02/2014 Office visit Gissel Sanchez CHEMIST STEROIDS 04/04/2014 Office visit Gissel Sanchez CHEMIST STEROIDS 02/17/2014 Office visit Gissel Sanchez CHEMIST STEROIDS 02/10/2014 Surgery Lowell Bouman DO 01/29/2014 Hospital Lowell Bouman DO 01/29/2014 Hospital Lowell Tanneruman DO 01/20/2014 Office visit Gissel Sanchez CHEMIST STEROIDS 12/20/2013 Office visit Gissel Sanchez CHEMIST STEROIDS 12/20/2013 Office visit Lowell Vargas DO 11/16/2013 Surgery Lowell Tanneruman DO 11/03/2013 [facility] Natalia Jo MD 11/03/2013 Hospital Lowell Bouman DO 10/21/2013 Procedures Lowell Tanneruman DO 08/30/2013 Office visit Lowell Tanneruman DO 08/23/2013 Office visit Lowell Tanneruman DO 07/19/2013 Office visit Lowell Vargas DO 06/28/2013 Office visit Lowell Tanneruman DO 06/16/2013 Hospital Lowell Bouman DO
--- OUTSIDE RECORDS SUMMARY | 2018-05-17 16:29 | XMS REPORT ---
Author Author HENRIQUE RACHEL [facility] eClinicalWorks Address Unknown Phone Unavailable Care Team Providers Care Language Teacher Name Role Phone HENRIQUE RACHEL Unavailable Allergies, Adverse Reactions, Alerts Substance Reaction Event Type Iodine Info Not Available Drug Allergy Natural rubber Info Not Available Non Drug Allergy Latex Info Not Available Non Drug Allergy Problems Problem Type Condition Code Onset Dates Condition Status Problem Chronic obstructive pulmonary disease, unspecified COPD type J44.9 Active Problem Obesity, unspecified obesity severity, unspecified obesity type E66.9 Active Problem Amenorrhea N91.2 Active Assessment Obesity, unspecified obesity severity, unspecified obesity type E66.9 Active Assessment Amenorrhea N91.2 Active Assessment Chronic obstructive pulmonary disease, unspecified COPD type J44.9 Active Medications Medication Code System Code Instructions Start Date End Date Status Dosage ProAir HFA [facility] [address]-95 108 (90 Base) MCG/ACT Inhalation every 4 hrs 2 puffs as needed Zoloft [facility] [address]-58 100 MG Orally Once a day 1 tablet Diclofenac Sodium [facility] [address]-42 75 MG Orally 2 times a day 1 tablet Vitamin B-12 [facility] [address]4961 1000 MCG/15ML Orally Once a day 1ml Oxybutynin Chloride [facility] [address]-66 5 MG Orally Twice a day 1 tablet Childrens Multivitamin [facility] [address]389 60 MG Orally Once a day 1 tablet Calcium 1200 [facility] 44[address] 4580-6865 MG-UNIT Orally Once a day 1 tablet with a meal MetFORMIN HCl ER [facility] [address]-34 500 MG Orally Once a day & 2 tablets in pm 1 tablet Minipress [facility] [address]-36 1 MG Orally Once a day 1 capsule at bedtime BusPIRone HCl [facility] [address]-30 10 MG Orally Three times a day 1 tablet Symbicort [facility] [address]-20 160-4.5 MCG/ACT Inhalation Twice a day 2 puffs Trokendi XR [facility] [address]-03 200 MG Orally Once a day 1 capsule Procedures Procedure Coding System Code Date Office Visit, New Pt., Level 3 CPT-4 61017 Feb 20, 2015 Vital Signs Date/Time: Feb 20, 2015 Temperature 97.8 F Weight 271.2 lbs Height 65 in BMI 45.13 Index Blood Pressure Diastolic 76 mmHg Blood Pressure Systolic 124 mmHg Cardiac Monitoring Heart Rate 84 bpm Results No Known Results Summary Purpose eClinicalWorks Submission
--- OUTSIDE RECORDS SUMMARY | 2018-05-17 16:29 | XMS REPORT ---
Author Author MARCELA ROSSI [facility] eClinicalWorks Address Unknown Phone Unavailable Care Team Providers Care Mobile Nurse Name Role Phone MARCELA ROSSI Unavailable Allergies No Known Allergies Problems Problem Type Condition Code Onset Dates Condition Status Assessment Encounter for test Z32.00 Active Medications No Known Medications Procedures Procedure Coding System Code Date VENIPUNCT, ROUTINE* CPT-4 52615 Feb 16, 2015 CHORIONIC GONADOTROPIN ASSAY CPT-4 28062 Feb 16, 2015 Results Name Result Date Reference Range Unit Abnormality Flag ROUTINE VENIPUNCTURE Summary Purpose eClinicalWorks Submission
--- OUTSIDE RECORDS SUMMARY | 2018-05-17 16:30 | XMS REPORT | CCD ---
Author Author JOSE MANUEL VALENCIA Organization Unknown Address [address] [facility] [address] [place], [place] [address] Care Team Providers Care Workforce Development Program Director Name Role Phone JS GOMEZ, MAURO [place] Attphyangy MAURO WEINSTEIN MDsujono Vital Signs Unknown or Not Available. Allergies Allergy Code Allergy Type Reaction Status LATEX 0 Allergy to substance Active IODINE 5933 Drug allergy Active NATURAL RUBBER {Clinical monitoring unavailable} 0 Drug allergy Active Procedures Procedure Code Procedure Type Date URINALYSIS C&S IF IND 065971151 SNOMED CT 03/19/2014 INFLUENZA A & B 402534255 SNOMED CT 03/19/2014 History of Immunizations Unknown or Not Available. Problems Problem Code Start Date Resolved Date Status Abscess of abdominal wall 97489815 01/29/2014 Active Results INFLUENZA A & B - Collect Date/Time: 03/19/2014 21:30 Test Name Code Test Result Test Units Test Ref Range INFLUENZA A & B 6437-8 NO INFLUENZA A OR B DETECTED N/A URINALYSIS C&S IF IND - Collect Date/Time: 03/19/2014 22:24 Test Name Code Test Result Test Units Test Ref Range COLOR YELLOW N/A NL: YELLOW APPEARANCE CLEAR N/A NL: CLEAR SPEC GRAV 1.020 N/A NL: 1.002 - 1.022 pH 6.0 N/A NL: 5 - 9 PROTEIN NEGATIVE N/A NL: NEGATIVE mg/dl GLUCOSE NEGATIVE N/A NL: NEGATIVE mg/dl KETONE NEGATIVE N/A NL: NEGATIVE mg/dl BILIRUBIN NEGATIVE N/A NL: NEGATIVE BLOOD SMALL N/A NL: NEGATIVE NITRITE NEGATIVE N/A NL: NEGATIVE LEUK SCREEN NEGATIVE N/A NL: NEGATIVE WBC/HPF NEGATIVE N/A NL: NEGATIVE RBC/HPF 0-5 N/A NL: NEGATIVE CASTS/LPF NEGATIVE N/A NL: NEGATIVE CRYSTALS NEGATIVE N/A NL: NEGATIVE MUCOUS THRDS NEGATIVE N/A NL: NEGATIVE BACTERIA NEGATIVE N/A NL: NEGATIVE EPITH CELLS FEW SQUAMOUS N/A NL: NEGATIVE TRICHOMONAS NEGATIVE N/A NL: NEGATIVE YEAST NEGATIVE N/A NL: NEGATIVE CULT SET UP? NO N/A Active Medications Unknown or Not Available. Medications Administered During Visit Unknown or Not Available. Encounters Encounter Diagnosis Diagnosis Code Start Date ACUTE BRONCHITIS 4660 03/19/2014 Social History Smoking Status Code Start Date End Date Current every day smoker [id number] Patient Decision Aids Unknown or Not Available. Discharge Instructions You were admitted to [facility] on 03/19/2014 with a principal diagnosis of ACUTE BRONCHITIS. You were discharged from [facility] on 03/19/2014. Should you have any questions prior to discharge, please contact a member of your healthcare team. If you have left the hospital and have any questions, please contact your primary care physician. Chief Complaint and Reason For Visit Chief Complaint Date of Onset CONGESTION COUGH Function Status Description Code Date Type Status No Impairments [id number] 09/09/2013 Functional Active Referral/Transition of Care Unknown or Not Available.
--- OUTSIDE RECORDS SUMMARY | 2018-05-17 16:30 | XMS REPORT | Continuity of Care Document ---
Author Author [facility] Organization [facility] Address Unknown Phone Unavailable Allergies Active Description Code Type Severity Reaction Onset Reported/Identified Relationship to Patient Clinical Status Yes Iodinated Contrast Media - IV Dye [id number] Drug Allergy Moderate HIVES Yes Iodinated Contrast Media - Oral and [id number] Drug Allergy Moderate HIVES 11/10/2014 Yes Iodinated Contrast- Oral and IV Dye [id number] Drug Allergy Moderate HIVES 11/10/2014 Yes latex [id number] Drug Allergy Moderate SWELLING 11/10/2014 Medications There is no data. Problems Date Dx Coded Attending Type Code Diagnosis Diagnosed By 11/14/2014 DAX WREN DO Ot 574.10 CHOLELITH W CHOLECYS NEC 11/29/2014 DAX WREN DO Ot 574.20 11/29/2014 DAX WREN DO Ot V72.63 11/29/2014 DAX WREN DO Ot V74.8 03/04/2015 DANIELLE MAYEN MD Ot E28.2 POLYCYSTIC OVARIAN SYNDROME 03/04/2015 DANIELLE MAYEN MD Ot F17.210 NICOTINE DEPENDENCE, CIGARETTES, UNCOMPL 03/04/2015 DANIELLE MAYEN MD Ot R10.2 PELVIC AND PERINEAL PAIN 04/29/2015 DAX WREN DO Ot 574.20 04/29/2015 DAX WREN DO Ot V72.63 04/29/2015 DAX WREN DO Ot V74.8 04/29/2015 ROSALBA GOMEZ, VERÓNICA Montanez Ot F17.211 NICOTINE DEPENDENCE, CIGARETTES, IN GRADY 04/29/2015 ROSALBA GOMEZ, VERÓNICA Montanez Ot J01.90 ACUTE SINUSITIS, UNSPECIFIED 04/29/2015 ROSALBA GOMEZ, VERÓNICA Montanez Ot J20.9 ACUTE BRONCHITIS, UNSPECIFIED 05/01/2015 DAX WREN DO Ot 574.20 05/01/2015 DAX WREN DO Ot V72.63 05/01/2015 HOLGER CLAY, DAX Ot V74.8 05/03/2015 DAX WREN DO Ot 574.20 05/03/2015 HOLGER CLAY, DAX Ot V72.63 05/03/2015 DAX WREN DO Ot V74.8 05/21/2015 DAX WREN DO Ot 574.20 05/21/2015 DAX WREN DO Ot V72.63 05/21/2015 DAX WREN DO Ot V74.8 05/27/2015 JORGE LAWLER DO Ot E66.01 05/27/2015 JORGE LAWLER DO Ot G47.33 05/27/2015 JORGE LAWLER DO Ot J44.9 06/05/2015 JORGE LAWLER DO Ot E66.01 06/05/2015 JORGE LAWLER DO Ot G47.33 06/05/2015 JORGE LAWLER DO Ot J44.9 06/15/2015 DAX WREN DO Ot 574.20 CHOLELITHIASIS NOS 06/15/2015 DAX WREN DO Ot V72.63 PRE-PROCEDURAL LABORATORY EXAMINATION 06/15/2015 DAX WREN DO Ot V74.8 SCREEN-BACTERIAL DIS NEC 06/15/2015 JORGE LAWLER DO Ot E66.01 MORBID (SEVERE) OBESITY DUE TO EXCESS CA 06/15/2015 JORGE LAWLER DO Ot G47.33 OBSTRUCTIVE SLEEP APNEA (ADULT) (PEDIATR 06/15/2015 JORGE LAWLER DO Ot J44.9 CHRONIC OBSTRUCTIVE PULMONARY DISEASE, U 07/13/2015 DAX WREN DO Ot 574.20 CHOLELITHIASIS NOS 07/13/2015 DAX WREN DO Ot V72.63 PRE-PROCEDURAL LABORATORY EXAMINATION 07/13/2015 DAX WREN DO Ot V74.8 SCREEN-BACTERIAL DIS NEC 07/13/2015 LUIS ANTONIO GOMEZ, ORESTES Mendez ([place]) Ot Z02.71 ENCOUNTER FOR DISABILITY DETERMINATION 09/05/2015 DAX WREN DO Ot Z98.84 BARIATRIC SURGERY STATUS 10/25/2015 HOLGER CLAYDAX Ot Z98.84 BARIATRIC SURGERY STATUS 11/15/2015 HOLGER DAX CLAY Ot Z09 ENCNTR FOR F/U EXAM AFT TRTMT FOR COND O 11/15/2015 HOLGER DODAX Ot Z98.84 BARIATRIC SURGERY STATUS 11/28/2015 HOLGER DAX CLAY Ot Z09 ENCNTR FOR F/U EXAM AFT TRTMT FOR COND O 11/28/2015 HOLGER DAX CLAY Ot Z98.84 BARIATRIC SURGERY STATUS 01/11/2016 HOLGER DAX CLAY Ot 574.20 CHOLELITHIASIS NOS 01/11/2016 DAX WREN DO Ot V72.63 PRE-PROCEDURAL LABORATORY EXAMINATION 01/11/2016 HOLGER DAX CLAY Ot V74.8 SCREEN-BACTERIAL DIS NEC 01/11/2016 JORGE LAWLER DO Ot E66.01 MORBID (SEVERE) OBESITY DUE TO EXCESS CA 01/11/2016 JORGE LAWLER DO Ot G47.33 OBSTRUCTIVE SLEEP APNEA (ADULT) (PEDIATR 01/11/2016 JORGE LAWLER DO Ot J44.9 CHRONIC OBSTRUCTIVE PULMONARY DISEASE, U 01/11/2016 HOLGER DAX CLAY Ot Z98.84 BARIATRIC SURGERY STATUS 01/11/2016 HOLGER DAX CLAY Ot Z09 ENCNTR FOR F/U EXAM AFT TRTMT FOR COND O 01/11/2016 HOLGER DAX CLAY Ot Z98.84 BARIATRIC SURGERY STATUS 01/11/2016 JORGE LAWLER DO Ot G47.33 OBSTRUCTIVE SLEEP APNEA (ADULT) (PEDIATR 01/14/2016 JORGE LAWLER DO Ot G47.33 OBSTRUCTIVE SLEEP APNEA (ADULT) (PEDIATR 02/15/2016 DAX WREN DO Ot 574.20 CHOLELITHIASIS NOS 02/15/2016 DAX WREN DO Ot V72.63 PRE-PROCEDURAL LABORATORY EXAMINATION 02/15/2016 DAX WREN DO Ot V74.8 SCREEN-BACTERIAL DIS NEC 02/15/2016 JORGE LAWLER DO Ot E66.01 MORBID (SEVERE) OBESITY DUE TO EXCESS CA 02/15/2016 JORGE LAWLER DO Ot G47.33 OBSTRUCTIVE SLEEP APNEA (ADULT) (PEDIATR 02/15/2016 JORGE LAWLER DO Ot J44.9 CHRONIC OBSTRUCTIVE PULMONARY DISEASE, U 02/15/2016 DAX WREN DO Ot Z98.84 BARIATRIC SURGERY STATUS 02/15/2016 DAX WREN DO Ot Z09 ENCNTR FOR F/U EXAM AFT TRTMT FOR COND O 02/15/2016 DAX WREN DO Ot Z98.84 BARIATRIC SURGERY STATUS 02/15/2016 LUIS ANTONIO GOMEZ, ORESTES Mendez ([facility]) Ot Z02.71 ENCOUNTER FOR DISABILITY DETERMINATION 02/15/2016 CAMI ODOM APRN Ot J02.9 ACUTE PHARYNGITIS, UNSPECIFIED 02/15/2016 CAMI ODOM APRN Ot J44.0 CHRONIC OBSTRUCTIVE PULMON DISEASE W ACU 02/15/2016 CAMI ODOM APRN Ot R09.81 NASAL CONGESTION 02/18/2016 CAMI ODOM APRN Ot J02.9 ACUTE PHARYNGITIS, UNSPECIFIED 02/18/2016 CAMI ODOM APRN Ot J44.0 CHRONIC OBSTRUCTIVE PULMON DISEASE W ACU 02/18/2016 CAMI ODOM APRN Ot R09.81 NASAL CONGESTION 04/21/2016 DAX WREN DO Ot 574.20 CHOLELITHIASIS NOS 04/21/2016 DAX WREN DO Ot V72.63 PRE-PROCEDURAL LABORATORY EXAMINATION 04/21/2016 DAX WREN DO Ot V74.8 SCREEN-BACTERIAL DIS NEC 04/21/2016 JORGE LAWLER DO Ot E66.01 MORBID (SEVERE) OBESITY DUE TO EXCESS CA 04/21/2016 JORGE LAWLER DO Ot G47.33 OBSTRUCTIVE SLEEP APNEA (ADULT) (PEDIATR 04/21/2016 JORGE LAWLER DO Ot J44.9 CHRONIC OBSTRUCTIVE PULMONARY DISEASE, U 04/21/2016 DAX WREN DO Ot Z98.84 BARIATRIC SURGERY STATUS 04/21/2016 DAX WREN DO Ot Z09 ENCNTR FOR F/U EXAM AFT TRTMT FOR COND O 04/21/2016 DAX WREN DO Ot Z98.84 BARIATRIC SURGERY STATUS 11/08/2016 JORGE LAWLER DO Ot E66.01 MORBID (SEVERE) OBESITY DUE TO EXCESS CA 11/08/2016 JORGE LAWLER DO Ot G47.33 OBSTRUCTIVE SLEEP APNEA (ADULT) (PEDIATR 11/08/2016 JORGE LAWLER DO Ot J44.9 CHRONIC OBSTRUCTIVE PULMONARY DISEASE, U 11/08/2016 DAX WREN DO Ot Z98.84 BARIATRIC SURGERY STATUS 11/08/2016 DAX WREN DO Ot Z09 ENCNTR FOR F/U EXAM AFT TRTMT FOR COND O 11/08/2016 DAX WREN DO Ot Z98.84 BARIATRIC SURGERY STATUS 11/17/2016 DAX WREN DO Ot 574.20 CHOLELITHIASIS NOS 11/17/2016 DAX WREN DO Ot V72.63 PRE-PROCEDURAL LABORATORY EXAMINATION 11/17/2016 DAX WREN DO Ot V74.8 SCREEN-BACTERIAL DIS NEC 11/17/2016 JORGE LAWLER DO Ot E66.01 MORBID (SEVERE) OBESITY DUE TO EXCESS CA 11/17/2016 JORGE LAWLER DO Ot G47.33 OBSTRUCTIVE SLEEP APNEA (ADULT) (PEDIATR 11/17/2016 JORGE LAWLER DO Ot J44.9 CHRONIC OBSTRUCTIVE PULMONARY DISEASE, U 11/17/2016 DAX WREN DO Ot Z98.84 BARIATRIC SURGERY STATUS 11/17/2016 DAX WREN DO Ot Z09 ENCNTR FOR F/U EXAM AFT TRTMT FOR COND O 11/17/2016 DAX WREN DO Ot Z98.84 BARIATRIC SURGERY STATUS 07/24/2017 DAX WREN DO Ot 574.20 CHOLELITHIASIS NOS 07/24/2017 DAX WREN DO Ot V72.63 PRE-PROCEDURAL LABORATORY EXAMINATION 07/24/2017 DAX WREN DO Ot V74.8 SCREEN-BACTERIAL DIS NEC 07/24/2017 JORGE LAWLER DO Ot E66.01 MORBID (SEVERE) OBESITY DUE TO EXCESS CA 07/24/2017 JORGE LAWLER DO Ot G47.33 OBSTRUCTIVE SLEEP APNEA (ADULT) (PEDIATR 07/24/2017 JORGE LAWLER DO Ot J44.9 CHRONIC OBSTRUCTIVE PULMONARY DISEASE, U 07/24/2017 JULIO WREN DODONG Ot Z98.84 BARIATRIC SURGERY STATUS 07/24/2017 [facility] JULIODONG Ot Z09 ENCNTR FOR F/U EXAM AFT TRTMT FOR COND O 07/24/2017 [facility] JULIODONG Ferraro Z98.84 BARIATRIC SURGERY STATUS 07/24/2017 VERÓNICA NAVARRETE MD, Ot F31.9 BIPOLAR DISORDER, UNSPECIFIED 07/24/2017 VERÓNICA NAVARRETE MD Ot F41.9 ANXIETY DISORDER, UNSPECIFIED 07/24/2017 VERÓNICA NAVARRETE MD Ot F43.10 POST-TRAUMATIC STRESS DISORDER, UNSPECIF 07/24/2017 VERÓNICA NAVARRETE MD Ot J44.9 CHRONIC OBSTRUCTIVE PULMONARY DISEASE, U 07/24/2017 VERÓNICA NAVARRETE MD Ot M54.5 LOW BACK PAIN 07/24/2017 VERÓNICA NAVARRETE MD Ot M54.6 PAIN IN THORACIC SPINE 07/24/2017 VERÓNICA NAVARRETE MD Ot R06.00 DYSPNEA, UNSPECIFIED 07/24/2017 VERÓNICA NAVARRETE MD Ot R06.02 SHORTNESS OF BREATH 07/24/2017 VERÓNICA NAVARRETE MD Ot S49.91XA UNSP INJURY OF RIGHT SHOULDER AND UPPER 07/24/2017 VERÓNICA NAVARRETE MD Ot W10.9XXA FALL (ON) (FROM) UNSPECIFIED STAIRS AND 07/24/2017 VERÓNICA NAVARRETE MD Ot Z87.19 PERSONAL HISTORY OF OTHER DISEASES OF TH 07/24/2017 VERÓNICA NAVARRETE MD Ot Z87.42 PERSONAL HISTORY OF OTH DISEASES OF THE 07/24/2017 VERÓNICA NAVARRETE MD Ot Z96.22 MYRINGOTOMY TUBE(S) STATUS 07/27/2017 VERÓNICA NAVARRETE MD Ot F31.9 BIPOLAR DISORDER, UNSPECIFIED 07/27/2017 VERÓNICA NAVARRETE MD Ot F41.9 ANXIETY DISORDER, UNSPECIFIED 07/27/2017 VERÓNICA NAVARRETE MD Ot F43.10 POST-TRAUMATIC STRESS DISORDER, UNSPECIF 07/27/2017 VERÓNICA NAVARRETE MD, Ot J44.9 CHRONIC OBSTRUCTIVE PULMONARY DISEASE, U 07/27/2017 VERÓNICA NAVARRETE MD, Ot M54.5 LOW BACK PAIN 07/27/2017 VERÓNICA NAVARRETE MD, Ot M54.6 PAIN IN THORACIC SPINE 07/27/2017 VERÓNICA NAVARRETE MD, Ot R06.00 DYSPNEA, UNSPECIFIED 07/27/2017 VERÓNICA NAVARRETE MD, Ot R06.02 SHORTNESS OF BREATH 07/27/2017 VERÓNICA NAVARRETE MD, Ot S49.91XA UNSP INJURY OF RIGHT SHOULDER AND UPPER 07/27/2017 VERÓNICA NAVARRETE MD, Ot W10.9XXA FALL (ON) (FROM) UNSPECIFIED STAIRS AND 07/27/2017 VERÓNICA NAVARRETE MD, Ot Z87.19 PERSONAL HISTORY OF OTHER DISEASES OF TH 07/27/2017 VERÓNICA NAVARRETE MD, Ot Z87.42 PERSONAL HISTORY OF OTH DISEASES OF THE 07/27/2017 VERÓNICA NAVARRETE MD, Ot Z96.22 MYRINGOTOMY TUBE(S) STATUS 09/25/2017 DAX WREN DO Ot 574.20 CHOLELITHIASIS NOS 09/25/2017 DAX WREN DO Ot V72.63 PRE-PROCEDURAL LABORATORY EXAMINATION 09/25/2017 DAX WREN DO Ot V74.8 SCREEN-BACTERIAL DIS NEC 09/25/2017 JORGE LAWLER DO Ot E66.01 MORBID (SEVERE) OBESITY DUE TO EXCESS CA 09/25/2017 JORGE LAWLER DO Ot G47.33 OBSTRUCTIVE SLEEP APNEA (ADULT) (PEDIATR 09/25/2017 JORGE LAWLER DO, Ot J44.9 CHRONIC OBSTRUCTIVE PULMONARY DISEASE, U 09/25/2017 DAX WREN DO Ot Z98.84 BARIATRIC SURGERY STATUS 09/25/2017 DAX WREN DO, Ot Z09 ENCNTR FOR F/U EXAM AFT TRTMT FOR COND O 09/25/2017 DAX WREN DO, Ot Z98.84 BARIATRIC SURGERY STATUS 02/15/2018 LUIS ANTONIO GOMEZ, ORESTES Mendez ([facility]) Ot Z02.71 ENCOUNTER FOR DISABILITY DETERMINATION 02/15/2018 LUIS ANTONIO GOMEZ, ORESTES Mendez ([facility]) Ot Z02.71 ENCOUNTER FOR DISABILITY DETERMINATION 02/15/2018 BERNVANESA AMAURI Ot F31.9 BIPOLAR DISORDER, UNSPECIFIED 02/15/2018 BERNOT, AMAURI Ot F41.9 ANXIETY DISORDER, UNSPECIFIED 02/15/2018 BERNOT, AMAURI Ot F43.10 POST-TRAUMATIC STRESS DISORDER, UNSPECIF 02/15/2018 BERNOT, AMAURI Ot G47.30 SLEEP APNEA, UNSPECIFIED 02/15/2018 BERNOT, AMAURI Ot J44.9 CHRONIC OBSTRUCTIVE PULMONARY DISEASE, U 02/15/2018 BERNOT, AMAURI Ot R11.2 NAUSEA WITH VOMITING, UNSPECIFIED 02/15/2018 BERNOT, AMAURI Ot R19.7 DIARRHEA, UNSPECIFIED 02/15/2018 BERNOT, AMAURI Ot Z79.51 ASSISTED (CURRENT) USE OF INHALED STERO 02/15/2018 BERNOT, AMAURI Ot Z87.19 PERSONAL HISTORY OF OTHER DISEASES OF TH 02/15/2018 BERNOT, AMAURI Ot Z87.448 PERSONAL HISTORY OF OTHER DISEASES OF UR 02/15/2018 BERNOT, AMAURI Ot Z91.040 LATEX ALLERGY STATUS 02/15/2018 BERNOT, AMAURI Ot Z91.041 RADIOGRAPHIC DYE ALLERGY STATUS 02/15/2018 BERNOT, AMAURI Ot Z98.84 BARIATRIC SURGERY STATUS 02/15/2018 BERNOT, AMAURI Ot Z98.890 OTHER SPECIFIED POSTPROCEDURAL STATES 02/21/2018 BERNOT, AMAURI Ot F31.9 BIPOLAR DISORDER, UNSPECIFIED 02/21/2018 BERNOT, AMAURI Ot F41.9 ANXIETY DISORDER, UNSPECIFIED 02/21/2018 BERNOT, AMAURI Ot F43.10 POST-TRAUMATIC STRESS DISORDER, UNSPECIF 02/21/2018 BERNOT, AMAURI Ot G47.30 SLEEP APNEA, UNSPECIFIED 02/21/2018 BERNOT, AMAURI Ot J44.9 CHRONIC OBSTRUCTIVE PULMONARY DISEASE, U 02/21/2018 BERNOT, AMAURI Ot R11.2 NAUSEA WITH VOMITING, UNSPECIFIED 02/21/2018 BERNOT, AMAURI Ot R19.7 DIARRHEA, UNSPECIFIED 02/21/2018 BERNOT, AMAURI Ot Z79.51 RN PROCEDURES (CURRENT) USE OF INHALED STERO 02/21/2018 BERNOT, AMAURI Ot Z87.19 PERSONAL HISTORY OF OTHER DISEASES OF TH 02/21/2018 AMAURI OLSON Ot Z87.448 PERSONAL HISTORY OF OTHER DISEASES OF UR 02/21/2018 AMAURI OLSON Ot Z91.040 LATEX ALLERGY STATUS 02/21/2018 AMAURI OLSON Ot Z91.041 RADIOGRAPHIC DYE ALLERGY STATUS 02/21/2018 AMAURI OLSON Ot Z98.84 BARIATRIC SURGERY STATUS 02/21/2018 AMAURI OLSON Ot Z98.890 OTHER SPECIFIED POSTPROCEDURAL STATES 04/20/2018 LUIS ANTONIO GOMEZ, ORESTES Mendez ([facility]) Ot Z02.71 ENCOUNTER FOR DISABILITY DETERMINATION Procedures There is no data. Results Test Result Range Serum or plasma albumin measurement (mass/volume) - 11/15/15 08:51 Serum or plasma albumin measurement (mass/volume) 4.1 g/dL 3.2-4.5 Complete blood count (CBC) with automated white blood cell (WBC) differential - 07/24/17 07:14 Blood leukocytes automated count (number/volume) 8.5 10*3/uL 4.3-11.0 Blood erythrocytes automated count (number/volume) 5.12 10*6/uL 4.35-5.85 Venous blood hemoglobin measurement (mass/volume) 15.3 g/dL 11.5-16.0 Blood hematocrit (volume fraction) 43 % 35-52 Automated erythrocyte mean corpuscular volume 83 [foz_us] 80-99 Automated erythrocyte mean corpuscular hemoglobin (mass per erythrocyte) 30 pg 25-34 Automated erythrocyte mean corpuscular hemoglobin concentration measurement ( mass/volume) 36 g/dL 32-36 Automated erythrocyte distribution width ratio 13.2 % 10.0-14.5 Automated blood platelet count (count/volume) 271 10*3/uL 130-400 Automated blood platelet mean volume measurement 9.9 [foz_us] 7.4-10.4 Automated blood neutrophils/100 leukocytes 52 % 42-75 Automated blood lymphocytes/100 leukocytes 36 % 12-44 Blood monocytes/100 leukocytes 6 % 0-12 Automated blood eosinophils/100 leukocytes 6 % 0-10 Automated blood basophils/100 leukocytes 1 % 0-10 Blood neutrophils automated count (number/volume) 4.4 10*3 1.8-7.8 Blood lymphocytes automated count (number/volume) 3.0 10*3 1.0-4.0 Blood monocytes automated count (number/volume) 0.5 10*3 0.0-1.0 Automated eosinophil count 0.5 10*3/uL 0.0-0.3 Automated blood basophil count (count/volume) 0.1 10*3/uL 0.0-0.1 Comprehensive metabolic panel - 07/24/17 07:14 Serum or plasma sodium measurement (moles/volume) 140 mmol/L 135-145 Serum or plasma potassium measurement (moles/volume) 3.9 mmol/L 3.6-5.0 Serum or plasma chloride measurement (moles/volume) 111 mmol/L 98-107 Carbon dioxide 18 mmol/L 21-32 Serum or plasma anion gap determination (moles/volume) 11 mmol/L 5-14 Serum or plasma urea nitrogen measurement (mass/volume) 15 mg/dL 7-18 Serum or plasma creatinine measurement (mass/volume) 0.80 mg/dL 0.60-1.30 Serum or plasma urea nitrogen/creatinine mass ratio 19 NRG Serum or plasma creatinine measurement with calculation of estimated glomerular filtration rate > NRG Serum or plasma glucose measurement (mass/volume) 116 mg/dL 70-105 Serum or plasma calcium measurement (mass/volume) 9.7 mg/dL 8.5-10.1 Serum or plasma total bilirubin measurement (mass/volume) 0.8 mg/dL 0.1-1.0 Serum or plasma alkaline phosphatase measurement (enzymatic activity/volume) 64 U/L 40-136 Serum or plasma aspartate aminotransferase measurement (enzymatic activity/ volume) 16 U/L 5-34 Serum or plasma alanine aminotransferase measurement (enzymatic activity/volume ) 13 U/L 0-55 Serum or plasma protein measurement (mass/volume) 7.4 g/dL 6.4-8.2 Serum or plasma albumin measurement (mass/volume) 4.3 g/dL 3.2-4.5 TEST, SERUM (QUAL) - 02/05/18 16:56 HCG, TOTAL, QL NEGATIVE See Note: Complete blood count (CBC) with automated white blood cell (WBC) differential - 02/15/18 11:35 Blood leukocytes automated count (number/volume) 7.4 10*3/uL 4.3-11.0 Blood erythrocytes automated count (number/volume) 5.20 10*6/uL 4.35-5.85 Venous blood hemoglobin measurement (mass/volume) 15.7 g/dL 11.5-16.0 Blood hematocrit (volume fraction) 45 % 35-52 Automated erythrocyte mean corpuscular volume 86 [foz_us] 80-99 Automated erythrocyte mean corpuscular hemoglobin (mass per erythrocyte) 30 pg 25-34 Automated erythrocyte mean corpuscular hemoglobin concentration measurement ( mass/volume) 35 g/dL 32-36 Automated erythrocyte distribution width ratio 12.3 % 10.0-14.5 Automated blood platelet count (count/volume) 240 10*3/uL 130-400 Automated blood platelet mean volume measurement 9.9 [foz_us] 7.4-10.4 Automated blood neutrophils/100 leukocytes 50 % 42-75 Automated blood lymphocytes/100 leukocytes 36 % 12-44 Blood monocytes/100 leukocytes 8 % 0-12 Automated blood eosinophils/100 leukocytes 5 % 0-10 Automated blood basophils/100 leukocytes 1 % 0-10 Blood neutrophils automated count (number/volume) 3.7 10*3 1.8-7.8 Blood lymphocytes automated count (number/volume) 2.7 10*3 1.0-4.0 Blood monocytes automated count (number/volume) 0.6 10*3 0.0-1.0 Automated eosinophil count 0.4 10*3/uL 0.0-0.3 Automated blood basophil count (count/volume) 0.1 10*3/uL 0.0-0.1 Serum or plasma choriogonadotropin ( test) detection - 02/15/18 11:35 Serum or plasma choriogonadotropin ( test) detection NEGATIVE NEGATIVE Comprehensive metabolic panel - 02/15/18 11:35 Serum or plasma sodium measurement (moles/volume) 140 mmol/L 135-145 Serum or plasma potassium measurement (moles/volume) 3.9 mmol/L 3.6-5.0 Serum or plasma chloride measurement (moles/volume) 107 mmol/L 98-107 Carbon dioxide 23 mmol/L 21-32 Serum or plasma anion gap determination (moles/volume) 10 mmol/L 5-14 Serum or plasma urea nitrogen measurement (mass/volume) 11 mg/dL 7-18 Serum or plasma creatinine measurement (mass/volume) 0.80 mg/dL 0.60-1.30 Serum or plasma urea nitrogen/creatinine mass ratio 14 NRG Serum or plasma creatinine measurement with calculation of estimated glomerular filtration rate > NRG Serum or plasma glucose measurement (mass/volume) 83 mg/dL 70-105 Serum or plasma calcium measurement (mass/volume) 9.7 mg/dL 8.5-10.1 Serum or plasma total bilirubin measurement (mass/volume) 1.2 mg/dL 0.1-1.0 Serum or plasma alkaline phosphatase measurement (enzymatic activity/volume) 70 U/L 40-136 Serum or plasma aspartate aminotransferase measurement (enzymatic activity/ volume) 18 U/L 5-34 Serum or plasma alanine aminotransferase measurement (enzymatic activity/volume ) 15 U/L 0-55 Serum or plasma protein measurement (mass/volume) 7.3 g/dL 6.4-8.2 Serum or plasma albumin measurement (mass/volume) 4.2 g/dL 3.2-4.5 CALCIUM CORRECTED 9.5 mg/dL 8.5-10.1 Serum or plasma amylase measurement (enzymatic activity/volume) - 02/15/18 11: 35 Serum or plasma amylase measurement (enzymatic activity/volume) 52 U /L 25-125 Lipase - 02/15/18 11:35 Lipase 29 U/L 8-78 Complete urinalysis with reflex to culture - 02/15/18 12:30 Urine color determination YELLOW NRG Urine clarity determination CLEAR NRG Urine pH measurement by test strip 7 5-9 Specific gravity of urine by test strip 1.010 1.016- 1.022 Urine protein assay by test strip, semi-quantitative NEGATIVE NEGATIVE Urine glucose detection by automated test strip NEGATIVE NEGATIVE Erythrocytes detection in urine sediment by light microscopy NEGATIVE NEGATIVE Urine ketones detection by automated test strip NEGATIVE NEGATIVE Urine nitrite detection by test strip NEGATIVE NEGATIVE Urine total bilirubin detection by test strip NEGATIVE NEGATIVE Urine urobilinogen measurement by automated test strip (mass/volume) NORMAL NORMAL Urine leukocyte esterase detection by dipstick NEGATIVE NEGATIVE Automated urine sediment erythrocyte count by microscopy (number/high power field) NONE NRG Automated urine sediment leukocyte count by microscopy (number/high power field ) [HPF] NRG Bacteria detection in urine sediment by light microscopy TRACE NRG Squamous epithelial cells detection in urine sediment by light microscopy 2-5 NRG Crystals detection in urine sediment by light microscopy PRESENT NRG Casts detection in urine sediment by light microscopy NONE NRG Mucus detection in urine sediment by light microscopy SMALL NRG Complete urinalysis with reflex to culture NO NRG Amorphous sediment detection in urine sediment by light microscopy RARE ALAN PHOSPHATE NRG Encounters ACCT No. Visit Date/Time Discharge Status Pt. Type Provider Facility Loc./Unit Complaint [id number] 01/29/2015 14:06:09 01/29/2015 23:59:59 CLS Outpatient Gissel Sanchez Juliana [id number] 01/29/2015 11:45:52 01/29/2015 23:59:59 CLS Outpatient Salena Badillo [id number] 10/30/2014 14:03:05 10/30/2014 23:59:59 CLS Outpatient Gissel Sanchez Juliana [id number] 10/30/2014 12:41:10 10/30/2014 23:59:59 CLS Outpatient Que Roy [id number] 10/09/2014 21:55:56 10/09/2014 23:59:59 CLS Outpatient Gissel Sanchez Juliana [id number] 10/09/2014 21:44:41 10/09/2014 23:59:59 CLS Outpatient Que Roy [id number] 06/30/2014 10:06:32 06/30/2014 23:59:59 CLS Outpatient Salena Badillo [id number] 06/30/2014 08:59:05 06/30/2014 23:59:59 CLS Outpatient Gissel Sanchez Juliana [id number] 06/02/2014 11:18:37 06/02/2014 23:59:59 CLS Outpatient Salena Badillo [id number] 06/02/2014 10:10:10 06/02/2014 23:59:59 CLS Outpatient Paty Sanchezsunil Andrews [id number] 04/04/2014 10:30:50 04/04/2014 23:59:59 CLS Outpatient Daniel Gissel Andrews [id number] 02/17/2014 10:14:37 02/17/2014 23:59:59 CLS Outpatient DanielGissel [id number] 02/10/2014 11:02:13 02/10/2014 23:59:59 CLS Outpatient Lowell Vargas [id number] 02/07/2014 12:03:59 02/07/2014 23:59:59 CLS Outpatient Lowell Vargas [id number] 01/31/2014 09:30:29 01/31/2014 23:59:59 CLS Outpatient Lowell Vargas [id number] 01/20/2014 10:43:00 01/20/2014 23:59:59 CLS Outpatient Gissel Sanchez [id number] 01/01/2014 21:04:43 01/01/2014 23:59:59 CLS Outpatient Natalia Jo Laith [id number] 12/20/2013 14:27:07 12/20/2013 23:59:59 CLS Outpatient Gissel Sanchez [id number] 12/20/2013 13:53:11 12/20/2013 23:59:59 CLS Outpatient Lowell Vargas [id number] 11/17/2013 15:53:54 11/17/2013 23:59:59 CLS Outpatient Lowell Vargas [id number] 11/16/2013 14:24:24 11/16/2013 23:59:59 CLS Outpatient Lowell Vargas [id number] 10/21/2013 13:29:39 10/21/2013 23:59:59 CLS Outpatient Lowell Vargas [id number] 08/30/2013 10:41:00 08/30/2013 23:59:59 CLS Outpatient Lowell Vargas [id number] 08/23/2013 10:11:57 08/23/2013 23:59:59 CLS Outpatient Lowell Vargas [id number] 07/19/2013 11:30:39 07/19/2013 23:59:59 CLS Outpatient Lowell Vargas [id number] 06/28/2013 11:59:08 06/28/2013 23:59:59 CLS Outpatient Lowell Vargas [id number] 06/22/2013 11:32:10 06/22/2013 23:59:59 CLS Outpatient Lowell Vargas [id number] 04/19/2018 11:00:00 04/19/2018 23:59:59 CLS Outpatient MICHAEL ARAAY [facility] [id number] 02/05/2018 16:40:00 Document Registration [id number] 04/26/2018 13:40:00 04/26/2018 23:59:59 CLS Preadmit RIC PLATA DO [facility] ENDO SCREENING/CHRONIC CONSTIPATION [id number] 04/22/2018 05:37:00 04/22/2018 23:59:59 CLS Outpatient RIC PLATA DO [facility] PREOP COLONOSCOPY [id number] 02/15/2018 11:12:00 02/15/2018 13:45:00 DIS Emergency AMAURI OLSON [facility] ER N/V/D [id number] 07/24/2017 07:06:00 07/24/2017 10:11:00 DIS Emergency VERÓNICA NAVARRETE MD [facility] ER SOB,BACK AND SHOULDER PAIN,FALL [id number] 02/15/2016 13:54:00 02/15/2016 15:20:00 DIS Emergency ODOMCAMI APRN [facility] ER FLU SYMPTOMS [id number] 01/11/2016 14:10:00 01/11/2016 14:40:00 DIS Outpatient JORGE LAWLER DO [facility] SLEEP JOSE ANGEL, HYPERSOMNIA [id number] 11/15/2015 08:48:00 11/15/2015 23:59:59 CLS Outpatient DAX WREN DO [facility] LAB 6 MTH FOLLOW UP GASTRIC SLEEVE SURGERY [id number] 08/31/2015 10:03:00 08/31/2015 23:59:59 CLS Outpatient DAX WREN DO [facility] LAB POST OP GASTRIC SLEEVE [id number] 05/21/2015 13:38:00 05/21/2015 23:59:59 CLS Outpatient JORGE LAWLER DO [facility] RT COPD, JOSE ANGEL ON CPAP [id number] 04/29/2015 16:05:00 04/29/2015 18:49:00 DIS Emergency VERÓNICA NAVARRETE MD [facility] ER DIFF BREATHING/COUGH [id number] 03/04/2015 11:26:00 03/04/2015 14:25:00 DIS Emergency DANIELLE MAYEN MD [facility] ER [id number] 02/07/2015 15:28:00 02/07/2015 23:59:59 CLS Outpatient LUIS ANTONIO GOMEZ, ORESTES Mendez (DDU) [facility] RT DDU [id number] 11/14/2014 07:53:00 11/14/2014 16:00:00 DIS Outpatient DAX WREN DO [facility] SDC CHOLELITHIASIS [id number] 11/10/2014 08:40:00 11/10/2014 23:59:59 CLS Outpatient DAX WREN DO [facility] PREOP CHOLELITHIASIS [id number] 07/13/2015 10:30:00 Document Registration [id number] 07/13/2015 10:30:00 Document Registration [id number] 07/13/2015 10:30:00 Document Registration
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
[2018-05-17] MEDS ORDERED: RT-ALBUTEROL/IPRATROPIUM 3 ML (DUONEB) VIAL INH ONE (17:00)
--- NOTE | 2018-05-17 17:01 | Diagnostic Imaging Report ---
INDICATION: Cough and congestion. PA and lateral chest. FINDINGS: Heart size and pulmonary vascularity are normal. Lungs are clear. There are no effusions or pneumothoraces. IMPRESSION: No acute abnormalities in the chest. No change compared to 02/15/2016. Dictated by: Dictated on workstation # [id number]
[2018-05-17] MEDS ORDERED: AZIT250T PO (18:00)
[2018-05-17] MEDS ORDERED: METH4TAB PO (18:00)
[2018-05-17] MEDS ORDERED: D-ME473S38 PO (18:00)
[2018-05-17] MEDS ORDERED: ALB0.5V INH (18:00)
[2018-05-17 18:21] VITALS: BP 124/90
== END 2018-05-17 18:21 | disposition home or self-care (01) ==
LOC: EDUNIT# 16:15 → ER 16:16
DX: J44.9 Chronic obstructive pulmonary disease, unspecified (principal); F41.9 Anxiety disorder, unspecified; F31.9 Bipolar disorder, unspecified; F43.10 Post-traumatic stress disorder, unspecified; F17.210 Nicotine dependence, cigarettes, uncomplicated; Z98.84 Bariatric surgery status; Z87.19 Personal history of other diseases of the digestive system; Z87.448 Personal history of other diseases of urinary system; Z98.890 Other specified postprocedural states; Z91.041 Radiographic dye allergy status; Z91.040 Latex allergy status
CPT/HCPCS: 71046; 87804; 94640

== ENCOUNTER 2018-05-24 11:32 | Day surgery (SDC) | payer OTHER ==
[~2018-05-24] VITALS: Ht 162.6 cm; Wt 102.5 kg
[~2018-05-24 11:32] MED LIST changes: +ALB0.5V INH; +AZIT250T PO; +D-ME473S38 PO; +METH4TAB PO
[2018-05-24] MEDS ORDERED: LACTATED RINGERS 1,000 ML IV ONE (11:41)
[2018-05-24 11:45] VITALS: BP 123/84
[2018-05-24] MEDS ORDERED: PROPOFOL INJECTION 50 ML IV ONE (12:03)
[2018-05-24] MEDS ORDERED: MIDAZOLAM 2 MG/2 ML (VERSED) VIAL ONE (12:03)
[2018-05-24] MEDS ORDERED: LACTATED RINGERS 1,000 ML IV STA (12:08)
[2018-05-24] MEDS ORDERED: proPOfol 200 MG/20 ML (DIPRIVAN) VIAL IV ONE (13:03)
[2018-05-24 13:20] VITALS: BP 115/78
--- NOTE | 2018-05-24 13:20 | Progress Note-Post Operative ---
Post-Operative Progess Note Surgeon (s)/Forestry Consultant (s) Surgeon RIC PLATA DO Forestry Consultant: none Pre-Operative Diagnosis Constipation, RLQ pain Post-Operative Diagnosis colon polyps internal hemorrhoids constipation Procedure & Operative Findings Date of Procedure 05/24/18 Procedure Performed/Findings Colon with snare Colon with hot bx Anesthesia Type IV sedation by TEST BORE HELPER Estimated Blood Loss Estimated blood loss (mL): scant Specimens/Packing Specimens Removed Descending colon polyp Sigmoid colon polyp x 3 RIC PLATA DO May 24, 2018 13:20
--- NOTE | 2018-05-24 13:23 | Endoscopy Discharge Instruct ---
Endo Procedure/Findings Findings 1.: Polyp 2.: Internal Hemorrhoids Discharge Instructions - Activity: You might feel a little sleepy until tomorrow. This is due to the medicine you received to relax you. Until tomorrow, you should: NOT drive a car, operate machinery or power tools. NOT drink any alcoholic beverages. NOT make any important decisions or sign importortant papers. Do not return to work until tomorrow, unless otherwise instructed. Resume previous activities tomorrow. Diet: Start by taking liquids. If you tolerate liquids, advance to solid food. make an appointment for one week Instructions: 1.: Colonscopy in 5 years Notify Physician - If you experience excessive bleeding, unusual abdominal pain, fever, or chest pain, contact your doctor immediately. Follow-Up: - I have received and understand the above instructions and will call my doctor if I have any further questions. Patient Signature Date Nurse Signature Other (Relationship) RIC PLATA DO May 24, 2018 13:23
--- NOTE | 2018-05-24 13:24 | Anesthesia-General Post-Op ---
MAC Patient Condition Mental Status/LOC: Same as Preop Cardiovascular: Satisfactory Nausea/Vomiting: Absent Respiratory: Satisfactory Pain: Controlled Complications: Absent Post Op Complications Complications None Follow Up Care/Instructions Patient Instructions None needed. Anesthesiology Discharge Order Discharge Order Patient is doing well, no complaints, stable vital signs, no apparent adverse anesthesia problems. No complications reported per nursing. IVETTE DUFF CRNA May 24, 2018 13:24
[2018-05-24 13:50] VITALS: BP 107/75
[2018-05-24 14:16] VITALS: BP 107/75
--- NOTE | 2018-05-24 22:47 | OPERATIVE REPORT ---
DATE OF SERVICE: 05/24/2018 PREOPERATIVE DIAGNOSES: Constipation, right lower quadrant pain. POSTOPERATIVE DIAGNOSES: 1. Colon polyp. 2. Internal hemorrhoids. 3. Constipation. PROCEDURES: 1. Colonoscopy with snare polypectomy. 2. Colonoscopy with hot biopsy. SURGEON: Anam Fournier DO MAILMASTER: None. ANESTHESIA: IV sedation by the BLIND EYELETTER. SPECIMEN: One polyp from the descending colon and three polyp from the sigmoid colon. BLOOD LOSS: Scant. FLUIDS: Per anesthesia. POSTOPERATIVE CONDITION: Stable. INDICATION FOR PROCEDURE: The patient is a 47-year-old female who has been having some constipation problems and some right lower quadrant pain, needed colonoscopy for workup. FINDINGS: The patient had one polyp in the descending colon and then three polyps in the sigmoid colon. She also had some internal hemorrhoids. No other obvious pathology. PROCEDURE NOTE: After informed consent was obtained, the patient was brought to the endoscopy suite, placed in the bed left lateral decubitus position. She was administered IV sedation by the BLIND EYELETTER who then monitored her vitals the entire time, heart rate, blood pressure and pulse ox and the scope was inserted, pushed all the way about 150 cm, able to get to the cecum, took a picture of appendiceal orifice, noted the ileocecal valve and able to get into the terminal ileum, took a picture of the terminal ileum and then slowly withdrew the scope insufflating to look circumferentially at the leonard looking at the cecum, up the ascending colon to the hepatic flexure, then down the transverse colon, splenic flexure, into the descending colon and the descending colon, soft and flat polyp. Able to get a snare around it and do a snare polypectomy, suctioned this up and then continued down into the sigmoid colon. In the sigmoid colon, saw another polyp. The snare polypectomy able to suction this up and then saw two more flat polyps, unable to get this with a snare and because they were flat, elected to do a hot biopsies, got hot biopsy and able to remove the polyp in total with the biopsy, removed these and sent to pathology. Then continued down into the rectum, retroflexed the rectal vault, saw some minimal internal hemorrhoids. No other obvious pathology. Scope was removed. The patient tolerated the procedure and she was recovered in the endoscopy suite. Job ID: [id number] DocumentID: [id number] Dictated Date: 05/24/2018 17:08:56 Menagerie Caretaker Date: 05/24/2018 22:46:35 Dictated By: ANAM FOURNIER DO
== END 2018-05-24 14:10 | disposition home or self-care (01) ==
LOC: ENDO 11:32
PROVIDERS: ATTEND Surgery
DX: D12.4 Benign neoplasm of descending colon (principal); D12.5 Benign neoplasm of sigmoid colon; K63.5 Polyp of colon; K64.8 Other hemorrhoids; K59.00 Constipation, unspecified; J44.9 Chronic obstructive pulmonary disease, unspecified; F41.9 Anxiety disorder, unspecified; G47.33 Obstructive sleep apnea (adult) (pediatric); Z87.891 Personal history of nicotine dependence; F43.10 Post-traumatic stress disorder, unspecified; E66.01 Morbid (severe) obesity due to excess calories; Z79.899 Other long term (current) drug therapy; Z68.37 Body mass index [BMI] 37.0-37.9, adult
CPT/HCPCS: 84703